=== PATIENT | male | born 1975 | race Caucasian/White ===

== ENCOUNTER 2017-09-05 14:09 | Emergency (ER) | payer OTHER, SELFPAY ==
[2017-09-05 14:10] VITALS: BP 140/90; PULSE 68; RESP 16; TEMP 36.7; O2SAT 94; BMI 29.5
--- NOTE | 2017-09-05 14:19 | RAD_ITS ---
STUDY: X-RAY CHEST REASON FOR EXAM: Male, 42 years old. Chest pain TECHNIQUE: Single frontal view of the chest. COMPARISON: Chest CT dated September 25, 2014. FINDINGS: There is low volume inspiration with granulomatous calcification. There is no demonstrated pleural abnormality. Normal size heart. Normal mediastinum and omid. Normal visualized pulmonary arteries. Normal visualized aortic arch and descending thoracic aorta. Normal visualized thoracic spine. Normal visualized ribs, clavicles, and shoulders. There is no demonstrated abnormality of the visualized soft tissue structures of the upper abdomen. RAD/Chest 1 View (Portable) IMPRESSION: No acute pathology. Electronically Signed: Paco Sanders MD at 15:13 EST , Service support ,
--- NOTE | 2017-09-05 14:19 | EKG12_ITS ---
Test Reason : REPEAT Blood Pressure : / mmHG Vent. Rate : 064 BPM Atrial Rate : 064 BPM P-R Int : 174 ms QRS Dur : 090 ms QT Int : 404 ms P-R-T Axes : 047 017 023 degrees QTc Int : 416 ms Normal sinus rhythm Normal ECG Confirmed by RHODA PETIT MD ([id number]), editor book CLARIBEL RAMIREZ ([id number]) on 09/07/2017 12:50:17 PM Referred By: TATA Confirmed By:RHODA PETIT MD
[2017-09-05 14:23] VITALS: O2SAT 99
[2017-09-05 14:27] LABS: Absolute Lymphocyte Count 0.99 X10^3/ul (0.83-4.51); Absolute Neutrophil Count 1.5 X10^3/uL (2.0-7.7); Basophil# 0.07 X10^3/uL; Basophil% 2.3 % (0-1); Eosinophil# 0.09 X10^3/uL; Hematocrit 45.4 % (40-54); Hemoglobin 16.5 g/dl (13.0-16.5); Lymphocyte # 0.99 X10^3/ul (4.0); Lymphocyte % 32.6 % (19-41); Mean Corp Hgb Conc 36.3 g/gl (32-36); Mean Corpuscular Hgb 32.4 pg (27.0-32.0); Mean Platelet Vol. 9.7 fl (6.2-12.0); Monocyte# 0.36 X10^3/uL; Monocyte% 11.8 % (0-10); Neutrophil # 1.52 X10^3/uL (2.7-7.7); POSITIVE COUNT NO; POSITIVE DIFFERENTIAL NO; POSITIVE MORPHOLOGY NO; Platelet Count 187 K/mm3 (150-450); RBC Distribution Width CV 12.6 % (11.6-14.6); RBC Distribution Width SD 40.9 fl (35.1-43.9)
[2017-09-05 14:44] LABS: Anion Gap 5 (5-15); BUN 11 mg/dL (7-18); BUN/Creat Ratio 11.6 RATIO (10-20); Calcium,Total 8.7 mg/dL (8.5-10.1); Chloride 104 mmol/L (98-107); Creatinine, Serum 0.95 mg/dL (0.70-1.30); EST Glomerular Filtration Rate 92 mL/min (>60); Est Glom Filt Rate - Afr Amer 111 mL/min (>60); Estimated Creatinine Clearance 106.79 ml/min; Glucose 113 mg/dL (74-106); Potassium 4.6 mmol/L (3.5-5.1); Sodium Level 138 mmol/L (136-145)
--- NOTE | 2017-09-05 14:53 | ED.DCSUM_ITS ---
- ER Visit Summary Date of Service: 09/05/17 Chief Complaint: Chest pain History of Present Illness: The patient is a 42 M who presents to the emergency department by squad with chest pain. The patient was in his normal state of health. He states over the past 4-5 days, he has had some intermittent abdominal cramping and mild nausea. He felt like he was getting a GI bug. He states he went to work today and felt fine. When he came home, he was slicing some bread. He had a sudden onset stabbing tightness in his central chest. He felt like it radiated to his neck. It lasted about 30 seconds and significantly decreased, but did not go away. He states that he began to feel lightheaded like he was going to pass out. He states he never had pain like this before. He denies any history of coronary vascular disease. 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 He also has a history of papillary thyroid cancer and is status post partial thyroidectomy. He denies history of smoking. He denies exertional dyspnea. He has no history of pulmonary embolus. Physical Examination: Vital signs reviewed General: Well-nourished, well-developed Head: Normocephalic, atraumatic Eyes: Pupils equal and reactive, extraocular muscles intact Neck, supple, no lymphadenopathy Heart: Regular rate and rhythm Respiratory: No distress, clear bilaterally Abdomen: Soft, nontender, nondistended, no peritoneal signs Back: Nontender Extremities: Nontender, no edema, no cords Skin: Normal color no rash Neuro: Alert and oriented, no focal or lateralizing deficits Test Results: EKG shows sinus rhythm without acute ischemia. Cardiac enzymes are unremarkable. Chest x-ray unremarkable. Emergency Department Course and Treatment: The patient presents with left-sided chest pain that began suddenly. It only lasted about 30 seconds. He has a mild ache now, but states it is not nearly as severe as it was before. His EKG is normal. There is no evidence of acute ischemic change. He is a normal axis and normal intervals. Chest x-ray is also unremarkable. The patient has negative cardiac enzymes. I did treat him with a GI cocktail with really no change. The patient has a heart score of 1. I did discuss options with him. He is comfortable with plan for a delta troponin. As long as this is negative, I do for the patient can safely be discharged home with outpatient follow-up. Family is agreeable with this plan of care. If there is any change in plan, addendum will be added. Treatment Plan: [] Disposition: Pending Impression: 1. Chest pain This note was generated with [employer] dictation software. It may contain incorrect words, spelling, and punctuation that were not noted in review of the chart prior to signing ED Disposition - Plan for ED Patient: Chief Complaint: Chest Pain Instructions: ED Chest Pain NonCardiac Referrals: Lorena Crump DO [Primary Care Provider] - 2 Days
--- NOTE | 2017-09-05 15:12 | EKG12_ITS ---
Test Reason : CHEST PAIN Blood Pressure : / mmHG Vent. Rate : 068 BPM Atrial Rate : 068 BPM P-R Int : 176 ms QRS Dur : 086 ms QT Int : 386 ms P-R-T Axes : 055 005 024 degrees QTc Int : 410 ms Normal sinus rhythm Normal ECG Confirmed by MARISABEL WATT, RHODA ([id number]), commissioning editor CLARIBEL RAMIREZ ([id number]) on 09/07/2017 12:54:54 PM Referred By: Confirmed By:RHODA PETIT MD
--- NOTE | 2017-09-05 15:23 | ED.RN ---
2nd ekg to go with 2nd troponin.
[2017-09-05 16:36] VITALS: BP 126/87; PULSE 69; RESP 16; O2SAT 99
[2017-09-05 17:46] VITALS: BP 134/97; PULSE 79; RESP 16; O2SAT 100
== END 2017-09-05 17:46 | disposition home or self-care (01) ==
LOC: ED 14:52
PROVIDERS: Emergency Provider Emergency Medicine; Family Provider Family Medicine; PCP Family Medicine
DX: R07.89 Other chest pain (principal); R10.9 Unspecified abdominal pain; R11.0 Nausea; R42 Dizziness and giddiness; Z85.47 Personal history of malignant neoplasm of testis; Z90.79 Acquired absence of other genital organ(s); Z85.850 Personal history of malignant neoplasm of thyroid; Z90.89 Acquired absence of other organs; Z79.899 Other long term (current) drug therapy
CPT/HCPCS: 71045; 80048; 84484; 85025; 93005; 99285; A4216

== ENCOUNTER → 2017-09-14 14:32 | Outpatient (CLI) | payer OTHER, SELFPAY ==
[2017-09-14 15:59] LABS: Cholesterol 197 mg/dL (200); High Density Lipoprotein 54 mg/dL; T4 Free Direct 0.88 ng/dL (0.76-1.46); Thyroid Stim Hormone (TSH) 3.54 uIU/mL (0.358-3.74); Triglycerides 67 mg/dL; Very Low Density Lipoprotein 13 mg/dL (5-40)
[2017-09-15 10:36] LABS: T3 Total - Triiodothyronine 1.11 ng/mL (0.6-1.81)
== END ==
PROVIDERS: Visit Provider Family Medicine
DX: E03.9 Hypothyroidism, unspecified (principal); Z13.220 Encounter for screening for lipoid disorders
CPT/HCPCS: 36415; 80061; 84439; 84443; 84480

== ENCOUNTER 2017-10-13 06:35 | Day surgery (SDC) | payer OTHER, SELFPAY ==
[2017-10-13] VITALS (7 sets, daily range): BP systolic 121–137; BP diastolic 82–95; PULSE 65–75; RESP 14–16; TEMP 35.9–36.4; O2SAT 93–96; BMI 27.1
--- NOTE | 2017-10-13 08:08 | PCM.OPRPT ---
Problem List (1) Gastro-esophageal reflux disease without esophagitis Status: Acute Report of Operation Date of Procedure: 10/13/17 Pre-Operative Diagnosis: k21.9 gastroesophageal reflux disease with out esophagitis Post-Operative Diagnosis: Same Surgery/Procedure Performed:: [id number] esophagogastroduodenoscopy with biopsy Type of Anesthesia:: MAC Anesthesiologist: Jadon Tellez Description of Procedure: Patient was brought into the endoscopy suite back of his throat was sprayed with Cetacaine spray. A bite-block was placed. He was placed on the left lateral decubitus position. He was given graded anesthesia. The scope was inserted into the oropharynx and directed down through the esophagus, stomach, and into the duodenum without difficulty. Operative findings: 1. Duodenum: Normal appearance no mass lesions no erythema and no ulcers identified. The scope easily traversed through the pylorus into the duodenal bulb which also looked entirely normal. 2. Stomach: Several areas look like it had been bleeding in the past but no obvious direct ulcers were identified. He did have some gastritis particularly in the prepyloric area. Biopsy for H. pylori was obtained. Retroflexion did not show any signs of a hiatal hernia. 3. Esophagus: Normal appearance no mass lesions no signs of esophagitis no mass lesions. The scope was withdrawn and the patient tolerated the procedure well. At this point I think it would be best if we started him on an [id number] proton pump inhibitor for at least a month to see if this will control any symptoms he may be having. - Admit VTE Documentation VTE Present on Admission: No VTE Mechan Device Prophylaxis: None VTE Pharm Prophylaxis ordered?: No Reason prophylaxis not ordered:: Treatment Not Indicated
--- NOTE | 2017-10-13 08:12 | OP.PCM_ITS ---
Problem List (1) Gastro-esophageal reflux disease without esophagitis Status: Acute Report of Operation Date of Procedure: 10/13/17 Pre-Operative Diagnosis: k21.9 gastroesophageal reflux disease with out esophagitis Post-Operative Diagnosis: Same Surgery/Procedure Performed:: [id number] esophagogastroduodenoscopy with biopsy Type of Anesthesia:: MAC Anesthesiologist: Jadon Tellez Description of Procedure: Patient was brought into the endoscopy suite back of his throat was sprayed with Cetacaine spray. A bite-block was placed. He was placed on the left lateral decubitus position. He was given graded anesthesia. The scope was inserted into the oropharynx and directed down through the esophagus, stomach, and into the duodenum without difficulty. Operative findings: 1. Duodenum: Normal appearance no mass lesions no erythema and no ulcers identified. The scope easily traversed through the pylorus into the duodenal bulb which also looked entirely normal. 2. Stomach: Several areas look like it had been bleeding in the past but no obvious direct ulcers were identified. He did have some gastritis particularly in the prepyloric area. Biopsy for H. pylori was obtained. Retroflexion did not show any signs of a hiatal hernia. 3. Esophagus: Normal appearance no mass lesions no signs of esophagitis no mass lesions. The scope was withdrawn and the patient tolerated the procedure well. At this point I think it would be best if we started him on an jxkr-dcs-eifarld proton pump inhibitor for at least a month to see if this will control any symptoms he may be having. - Admit VTE Documentation VTE Present on Admission: No VTE Mechan Device Prophylaxis: None VTE Pharm Prophylaxis ordered?: No Reason prophylaxis not ordered:: Treatment Not Indicated
== END 2017-10-13 08:53 | disposition home or self-care (01) ==
LOC: EN 06:36 → AC 06:37
PROVIDERS: Family Provider Family Medicine; PCP Family Medicine; Visit Provider Surgery
PROC: 0DJ08ZZ Inspection of Upper Intestinal Tract, Via Natural or Artificial Opening Endoscopic (ICD-10-PCS; CPT 43235; principal; 2017-10-13 07:55)
DX: K21.9 Gastro-esophageal reflux disease without esophagitis (principal); F32.9 Major depressive disorder, single episode, unspecified; F41.9 Anxiety disorder, unspecified; Z85.850 Personal history of malignant neoplasm of thyroid; Z85.47 Personal history of malignant neoplasm of testis; Z79.899 Other long term (current) drug therapy
CPT/HCPCS: 43239; J7120

== ENCOUNTER → 2017-11-29 15:04 | Outpatient (CLI) | payer OTHER, SELFPAY ==
[2017-11-29 16:19] LABS: LDH 215 U/L (87-241)
[2017-12-01 11:29] LABS: AFP, Tumor Marker 2.4 ng/mL (0.0-8.3)
[2017-12-01 11:33] LABS: HCG BETA-SUBUNIT QUANT. < 1 mIU/mL (0-3)
== END ==
PROVIDERS: Family Provider Family Medicine; PCP Family Medicine; Visit Provider Nurse Practitioner Adult Health
DX: Z85.47 Personal history of malignant neoplasm of testis (principal)
CPT/HCPCS: 36415; 82105; 83615; 84702

== ENCOUNTER → 2017-12-06 16:05 | Outpatient (CLI) | payer OTHER, SELFPAY ==
--- NOTE | 2017-12-06 16:09 | US_ITS ---
STUDY: SCROTUM ULTRASOUND REASON FOR EXAM: Male, 42 years old. Left testicular pain. Previous right orchiectomy. TECHNIQUE: Ultrasound evaluation of the scrotum was performed with color Doppler and static garcia-scale imaging. COMPARISON: None. FINDINGS: RIGHT TESTICLE Absent. LEFT TESTICLE INTRATESTICULAR: There is a normal size of the left testicle. The left testicle measures 4.8 x 3.4 x 2.1 cm. There is a homogenous echotexture. There is normal arterial and normal venous vascularity. There is no demonstrated left testicular mass or cyst. EXTRATESTICULAR: The epididymis is normal in size. The epididymis head measures 1.0 cm. There is normal vascularity of the epididymis. There is no demonstrated epididymal cystic structure. There is a small to moderate size hydrocele. There is no demonstrated varicocele. There is no demonstrated extratesticular mass or cyst. US/Testicular with Arterial Flow IMPRESSION: No significant abnormality, status post right orchiectomy. Electronically Signed: Stewart Lr MD at 19:21 EDT , Service support ,
== END ==
PROVIDERS: Family Provider Family Medicine; PCP Family Medicine; Visit Provider Nurse Practitioner Adult Health
DX: N50.812 Left testicular pain (principal); Z85.47 Personal history of malignant neoplasm of testis
CPT/HCPCS: 76870; 93976

== ENCOUNTER → 2018-10-14 14:26 | Outpatient (CLI) | payer OTHER, SELFPAY ==
[2018-10-14 16:11] LABS: Hematocrit 46.8 % (40-54); Mean Corp Hgb Conc 34.2 g/gl (32-36); Mean Corpuscular Hgb 31.9 pg (27.0-32.0); Mean Corpuscular Volume 93.4 fL (80-94); Mean Platelet Vol. 9.9 fl (6.2-12.0); Platelet Count 207 K/mm3 (150-450); RBC Distribution Width CV 12.7 % (11.6-14.6); RBC Distribution Width SD 42.7 fl (35.1-43.9); Red Blood Count 5.01 M/mm3 (4.6-6.2); Scan Indicated on CBC? Y/N NO; White Blood Count 3.5 K/mm3 (4.4-11.0)
[2018-10-14 16:28] LABS: ALB/GLOB Ratio 1.3 RATIO (0.9-2.4); AST(SGOT) 27 U/L (15-37); Alanine Aminotransfer ALT/SGPT 41 U/L (16-61); Albumin, Serum 4.3 g/dL (3.2-5.0); Alkaline Phosphatase 72 U/L (45-117); Anion Gap 7 (5-15); BUN 11 mg/dL (7-18); BUN/Creat Ratio 10.8 RATIO (10-20); Calcium,Total 8.8 mg/dL (8.5-10.1); Chloride 105 mmol/L (98-107); Cholesterol 191 mg/dL (200); Creatinine, Serum 1.02 mg/dL (0.70-1.30); EST Glomerular Filtration Rate 84 mL/min (>60); Est Glom Filt Rate - Afr Amer 102 mL/min (>60); Globulin 3.4 g/dL (2.2-4.2); Glucose 93 mg/dL (74-106); High Density Lipoprotein 50 mg/dL; PSA,Total - Annual Screen 1.09 ng/mL (0.00-4.00); Potassium 4.5 mmol/L (3.5-5.1); Protein, Total 7.7 g/dL (6.4-8.2); Sodium Level 142 mmol/L (136-145); T4 Free Direct 0.89 ng/dL (0.76-1.46); Thyroid Stim Hormone (TSH) 1.98 uIU/mL (0.358-3.74); Triglycerides 80 mg/dL; Very Low Density Lipoprotein 16 mg/dL (5-40)
[2018-10-19 09:08] LABS: Testosterone, Free 7.68 ng/dL (5.00-21.00)
[2018-10-19 11:39] LABS: Testosterone, % Free 2.34 % (1.50-4.20); Testosterone, Total 328 ng/dL (264-916)
== END ==
PROVIDERS: Family Provider Family Medicine; PCP Family Medicine; Visit Provider Family Medicine
DX: E03.9 Hypothyroidism, unspecified (principal); C62.90 Malignant neoplasm of unspecified testis, unspecified whether descended or undescended; E34.9 Endocrine disorder, unspecified; R53.83 Other fatigue; E78.5 Hyperlipidemia, unspecified; Z12.5 Encounter for screening for malignant neoplasm of prostate; Z51.81 Encounter for therapeutic drug level monitoring
CPT/HCPCS: 36415; 80053; 80061; 84153; 84402; 84403; 84439; 84443; 84481; 85027; G0103

== ENCOUNTER → 2019-03-14 | Outpatient (CLI) | payer OTHER, SELFPAY ==
--- NOTE | 2019-03-14 16:31 | CT_ITS ---
HISTORY:Abdominal wall mass/tenderness above umbilicus x 3-4 weeks. Hx testicular cancer, thyroid cancer with surgery and radiation. TECHNIQUE: CT Abdomen W/ Contrast Axial CT images were obtained of the abdomen and pelvis following IV/Oral 100mL Isovue 300 IV contrast. oral contrast was administered. Multiplanar reconstructions were also provided. A radiation dose optimization technique was used for this scan. # of images including paperwork:378 COMPARISON: None FINDINGS: FINDINGS: # of images incl. paperwork: 378 LOWER CHEST: Dependent atelectasis in the lung bases LIVER: Homogeneous. No focal mass. GALLBLADDER AND BILIARY TREE: No calcified gallstones. There is no gallbladder distension or wall edema. No intra- or extrahepatic biliary ductal dilation. KIDNEYS AND URETERS: There is a tiny low-density lesion seen within the inferior pole of the left kidney that is too small to quantify measuring 2.5 mm most likely representing a cyst. This was present on the prior study and is similar ADRENAL GLANDS: Non-enlarged. SPLEEN: Normal size without focal cystic or solid mass. PANCREAS: No focal cystic or solid mass. BOWEL: The stomach contains contrast and is unremarkable Visualized portions of the small bowel also contain contrast and unremarkable. No diverticulitis or mechanical obstruction involving the visualized portion of the colon. There is retained fecal material seen predominantly in the ascending colon APPENDIX:Not visualized but no pericecal inflammation FREE AIR: Unremarkable. FREE FLUID:Unremarkable AORTA: Unremarkable. OSSEOUS STRUCTURES: Unremarkable. LYMPH NODES: Unremarkable. CT/Abdomen WITH IV Contrast IMPRESSION: Dependent atelectasis in the lung bases Suspect tiny cyst at the inferior pole left kidney unchanged prior study No gross abnormalities are seen within the region of the umbilicus or proximal to the umbilicus. Individualized dose optimization techniques were used for this CT. at 2217 Reported and signed by: Aury Farmer DO Electronically Signed: Aury Farmer DO at 22:15 EDT Tel , Service support ,
[2019-03-14 16:41] LABS: CREATININE FINGERSTICK 1.1 mg/dL (0.70-1.30); EGFR FINGERSTICK > 60.0000 mL/min (>60)
== END | disposition home or self-care (01) ==
PROVIDERS: Family Provider Family Medicine; PCP Family Medicine; Referring Provider Family Medicine; Visit Provider Family Medicine
DX: R19.06 Epigastric swelling, mass or lump (principal)
CPT/HCPCS: 74160; Q9967

== ENCOUNTER → 2020-08-21 13:20 | Outpatient (CLI) | payer OTHER, SELFPAY ==
[2019-04-12 14:20] VITALS: BMI 27.1
[2020-08-21 15:48] LABS: Absolute Lymphocyte Count 0.99 X10^3/uL (0.83-4.51); Basophil# 0.04 X10^3/uL; Basophil% 0.7 % (0-1); Eosinophil# 0.06 X10^3/uL; Eosinophils% 1.1 % (0-5); Hematocrit 47.3 % (40-54); Hemoglobin 16.8 g/dL (13.0-16.5); Lymphocyte # 0.99 X10^3/ul (4.0); Lymphocyte % 17.7 % (19-41); Mean Corp Hgb Conc 35.5 g/dL (32-36); Mean Corpuscular Hgb 32.6 pg (27.0-32.0); Mean Corpuscular Volume 91.7 fL (80-94); Mean Platelet Vol. 10.4 fl (6.2-12.0); Monocyte# 0.46 X10^3/uL; Monocyte% 8.2 % (0-10); NRBC Flagged by Analyzer 0 % (0-5); Neutrophil # 4.02 X10^3/uL (2.7-7.7); Neutrophil % 72.1 % (47-70); Platelet Count 216 K/mm3 (150-450); RBC Distribution Width CV 12.4 % (11.6-14.6); RBC Distribution Width SD 41.6 fl (35.1-43.9); Red Blood Count 5.16 M/mm3 (4.6-6.2); White Blood Count 5.6 K/mm3 (4.4-11.0)
[2020-08-21 16:04] LABS: Erythrocyte Sedimentation Rate 2 mm/hr (0-20)
[2020-08-21 16:26] LABS: ALB/GLOB Ratio 1.3 RATIO (0.9-2.4); AST(SGOT) 26 U/L (15-37); Alanine Aminotransfer ALT/SGPT 34 U/L (16-61); Albumin, Serum 4.4 g/dL (3.2-5.0); Alkaline Phosphatase 62 U/L (45-117); Anion Gap 8 (5-15); BUN 14 mg/dL (7-18); BUN/Creat Ratio 11.6 RATIO (10-20); CRP < 2.90 mg/L (0.0-3.0); Calcium,Total 8.9 mg/dL (8.5-10.1); Chloride 103 mmol/L (98-107); Creatinine, Serum 1.21 mg/dL (0.70-1.30); EST Glomerular Filtration Rate 69 mL/min (>60); Est Glom Filt Rate - Afr Amer 83 mL/min (>60); Free T3 2.7 pg/mL (2.18-3.98); Globulin 3.3 g/dL (2.2-4.2); Glucose 85 mg/dL (74-106); LDH 255 U/L (87-241); Potassium 3.5 mmol/L (3.5-5.1); Protein, Total 7.7 g/dL (6.4-8.2); Sodium Level 137 mmol/L (136-145); T4 Free Direct 1.05 ng/dL (0.76-1.46); Thyroid Stim Hormone (TSH) 4.79 uIU/mL (0.358-3.74)
== END ==
PROVIDERS: PCP Family Medicine; Visit Provider Family Medicine
DX: E03.9 Hypothyroidism, unspecified (principal); Z85.850 Personal history of malignant neoplasm of thyroid; C62.90 Malignant neoplasm of unspecified testis, unspecified whether descended or undescended; Z51.81 Encounter for therapeutic drug level monitoring; R10.9 Unspecified abdominal pain
CPT/HCPCS: 36415; 80053; 83615; 84439; 84443; 84481; 85025; 85652; 86140

== ENCOUNTER → 2020-09-11 10:43 | Outpatient (CLI) | payer OTHER, SELFPAY ==
[2019-04-12 14:20] VITALS: BMI 27.1
--- NOTE | 2020-09-11 10:47 | US_ITS ---
STUDY: ABDOMINAL ULTRASOUND REASON FOR EXAM: Male, 45 years old. Abdominal pain TECHNIQUE: Transabdominal ultrasound was performed with real-time and static garcia scale imaging. TECHNICAL QUALITY: Adequate. COMPARISON: None. FINDINGS: Liver: The liver measures 15.4 cm. There is normal echogenicity of the liver. The bile ducts are within normal limits. There is hepatic color flow. The direction of portal flow is hepatopetal. There is no demonstrated mass lesion. Portal vein measurement: Gallbladder: Normal distended gallbladder. The gallbladder wall measures 3.0 mm. There is a negative sonographic Estrada''s sign. There is no pericholecystic fluid. There are no gallstones. Common Bile Duct (C.B.D.): The common bile duct measures 3.0 mm. Pancreas: There is nonvisualization of the pancreas due to overlying bowel gas. There is normal echogenicity of the pancreas. There is no demonstrated pancreatic mass or cyst. Spleen: Normal size of the spleen. The spleen measures 11.7 cm x 4.6 cm x 4.5 cm. Right Kidney: Normal size of the right kidney. The right kidney measures 11.2 cm x 5 cm x 5.8 cm. Normal renal cortex. The right cortex measures 1.7 cm. There is no demonstrated renal mass or cyst. There is no right hydronephrosis. Left Kidney: Normal size of the left kidney. The left kidney measures 12.4 cm x 5.8 cm x 6.7 cm. Normal renal cortex. The left cortex measures 2.1 cm. There is no demonstrated renal mass or cyst. There is no left hydronephrosis. Aorta: Unremarkable I.V.C.: The IVC is patent. There is no ascites. US/Abdomen Complete IMPRESSION: Normal abdominal ultrasound examination. Electronically Signed: Mik Uriostegui MD at 12:42 EST , Service support ,
== END ==
PROVIDERS: PCP Family Medicine; Referring Provider Family Medicine; Visit Provider Family Medicine
DX: R10.9 Unspecified abdominal pain (principal); R74.8 Abnormal levels of other serum enzymes
CPT/HCPCS: 76700

== ENCOUNTER 2021-08-26 15:34 | Outpatient (CLI) | payer OTHER, SELFPAY ==
[2021-08-26 16:40] LABS: Free T3 3.5 pg/mL (2.18-3.98); Thyroid Stim Hormone (TSH) 0.06 uIU/mL (0.358-3.74)
== END 2021-08-26 23:59 | disposition short-term general hospital (02) ==
LOC: LABSPEC 15:35
PROVIDERS: PCP Family Medicine; Visit Provider Family Medicine
DX: E03.9 Hypothyroidism, unspecified (principal)
CPT/HCPCS: 84439; 84443; 84481

== ENCOUNTER 2021-11-02 20:45 | Emergency (ER) | payer OTHER, SELFPAY ==
[2021-11-02 20:46] VITALS: BP 181/105; PULSE 78; RESP 16; TEMP 36.7; O2SAT 99; BMI 26.4
[2021-11-02 21:14] VITALS: BP 149/102; PULSE 77; RESP 14; O2SAT 94
--- NOTE | 2021-11-02 21:25 | EKG12_ITS ---
Test Reason : DYSRYTHMIA Blood Pressure : / mmHG Vent. Rate : 065 BPM Atrial Rate : 065 BPM P-R Int : 194 ms QRS Dur : 094 ms QT Int : 392 ms P-R-T Axes : 054 015 043 degrees QTc Int : 407 ms Normal sinus rhythm Normal ECG Confirmed by RACHELL WATT, SHARON ([id number]), purchase request editor ABA BARR ([id number]) on 11/05/2021 11:27:49 AM Referred By: BRINDA Confirmed By:SHARON LOVETT MD
[2021-11-02] MEDS: 0.9% Normal Saline 1,000 ML 1000 ML IV (21:29)
[2021-11-02 21:44] LABS: Absolute Lymphocyte Count 1.39 X10^3/uL (0.83-4.51); Absolute Neutrophil Count 3.4 X10^3/uL (2.0-7.7); Basophil# 0.05 X10^3/uL; Basophil% 0.9 % (0-1); Eosinophil# 0.12 X10^3/uL; Eosinophils% 2.2 % (0-5); Hematocrit 47.4 % (40-54); Lymphocyte # 1.39 X10^3/ul (0.83-4.51); Lymphocyte % 24.9 % (19-41); Mean Corp Hgb Conc 35.9 g/dL (32-36); Mean Corpuscular Hgb 31.9 pg (27.0-32.0); Mean Corpuscular Volume 88.9 fL (80-94); Monocyte# 0.64 X10^3/uL; Monocyte% 11.5 % (0-10); NRBC Flagged by Analyzer 0 % (0-5); Neutrophil # 3.37 X10^3/uL (2.7-7.7); Neutrophil % 60.3 % (47-70); Platelet Count 214 K/mm3 (150-450); RBC Distribution Width CV 12.4 % (11.6-14.6); RBC Distribution Width SD 40.3 fl (35.1-43.9); Red Blood Count 5.33 M/mm3 (4.6-6.2); White Blood Count 5.6 K/mm3 (4.4-11.0)
[2021-11-02 22:02] LABS: Anion Gap 4 (5-15); BUN 14 mg/dL (7-18); BUN/Creat Ratio 10.1 RATIO (10-20); Calcium,Total 9.1 mg/dL (8.5-10.1); Chloride 109 mmol/L (98-107); Creatinine, Serum 1.38 mg/dL (0.70-1.30); EST Glomerular Filtration Rate 59 mL/min (>60); Est Glom Filt Rate - Afr Amer 71 mL/min (>60); Estimated Creatinine Clearance 70.48 ml/min; Glucose 133 mg/dL (74-106); Potassium 3.5 mmol/L (3.5-5.1); Sodium Level 139 mmol/L (136-145); Troponin-I HS < 3 pg/mL (3.0-78.0)
--- NOTE | 2021-11-02 22:03 | EDS_ITS ---
HPI History of Present Illness Chief Complaint: Other, Pain/Inj Informant: patient Narrative Narrative: 46-year-old male presenting with bilateral bicep arm pain. He states he had these symptoms approximately 1 hour ago. He states the symptoms lasted approximately 45 seconds to 1 minute. He states over the past couple of days he has also had episodes of feeling lightheaded. He has not passed out. He denies chest pain or shortness of breath. Denies fever. Denies numbness or weakness. Denies other complaints. Denies CAD risk factors. Denies PE/DVT risk factors. Prior similar symptoms: No Recent Illness/Hospitalization: No [facility] Medical History (Updated 11/02/21 @ 22:[address] Karma Ellison MD) Depression GERD (gastroesophageal reflux disease) Testicular cancer Thyroid cancer Home Medications levothyroxine 100 mcg tablet 100 mcg PO DAILY tab 04/12/19 [History Last Taken Unknown] levothyroxine 25 mcg capsule 25 mcg PO DAILY 04/12/19 [History Last Taken Unknown] omeprazole 40 mg capsule,delayed release 40 mg PO DAILY 04/12/19 [History Last Taken Unknown] Allergy/AdvReac Type Severity Reaction Status Date / Time No Known Allergies Allergy Verified 04/12/19 14:18 Family History Mother Cancer melanoma Hypertension Surgical History History of esophagogastroduodenoscopy (EGD) (~10/13/17) History of surgical removal of testicle S/P total thyroidectomy Social History (Updated 04/12/19 @ 14:[address] Jese Patel MD) Smoking Status: Never smoker alcohol intake: current substance use type: does not use ROS ROS ED Constitutional Constitutional ED: Denies fever(s) Eyes Eyes: Denies change in vision ENT ENT ED: Denies rhinorrhea or sore throat Cardiovascular Cardiovascular: Denies chest pain or palpitations Respiratory/Chest Respiratory/Chest: Denies cough or dyspnea Gastrointestinal Gastrointestinal: Denies abdominal pain, diarrhea, nausea or vomiting Genitourinary Genitourinary ED: Denies dysuria Musculoskeletal Musculoskeletal: Denies back pain or neck pain Integumentary Denies rash Neurologic Neurologic: Denies headache(s), paresthesias or weakness Psychiatric Psychiatric: Denies suicidal thoughts EXAM Physical Exam Const Vital Signs: 11/02/21 20:46 11/02/21 20:54 11/02/21 21:14 Temperature 98.1 F Temperature Source Temporal Pulse Rate 78 77 Respiratory Rate 16 14 Respiratory Effort Normal Respiratory Pattern Normal Blood Pressure 181/105 H 149/102 H Blood Pressure Mean 130 117 Pulse Ox 99 94 Oxygen Delivery Method Room Air Room Air Positive well nourished and well developed General Appearance ED: well developed HEENT Reports normocephalic and head/scalp atraumatic Eyes PERRL and EOMs intact bilaterally Neck supple General: Negative for tenderness Chest Wall inspection of chest normal Resp normal respiratory effort and clear to auscultation bilaterally Cardio regular rate and regular rhythm GI non-tender and non-distended Palpation: soft; Negative for guarding or rebound tenderness present no CVA tenderness Extremity normal to inspection Neuro oriented x3, CN's II-XII intact bilaterally and no sensory deficits noted Sensorium / Orientation: alert Motor Exam: strength 5/5 throughout Psych mental status grossly normal Skin no rashes or lesions noted MDM MDM MDM Narrative Medical decision making narrative: CBC, chemistries are unremarkable. Creatinine 1.38, previous 1.21. Troponin is negative. Patient was given IV fluids. Patient is resting comfortably on reevaluation. He continues to deny chest pain. Delta troponin will be obtained and is pending at this time. Patient will be discharged to follow-up with his primary care physician if this is negative. He was advised signs and symptoms for which to return to the ED. He is agreeable with this plan. Lab Data Attestation: I reviewed the patient's lab results. Labs: Laboratory Results - last 24 hr 11/02/21 11/02/21 21:25 21:25 WBC 5.6 RBC 5.33 Hgb 17.0 H Hct 47.4 MCV 88.9 MCH 31.9 MCHC 35.9 RDW Std Deviation 40.3 RDW Coeff of Paula 12.4 Plt Count 214 MPV 10.0 Immature Gran % (Auto) 0.200 Neut % (Auto) 60.3 Lymph % (Auto) 24.9 [place] % (Auto) 11.5 H Eos % (Auto) 2.2 Baso % (Auto) 0.9 Absolute Neuts (auto) 3.4 Absolute Lymphs (auto) 1.39 Nucleated RBC % 0 Sodium 139 Potassium 3.5 Chloride 109 H Carbon Dioxide 26.0 Anion Gap 4 L BUN 14 Creatinine 1.38 H Estim Creat Clear Calc 70.48 Est GFR (MDRD) Af Amer 71 Est GFR (MDRD) Non-Af 59 L BUN/Creatinine Ratio 10.1 Glucose 133 H Calcium 9.1 Troponin I High Sens < 3 L EKG Initial EKG: Attestation: I personally reviewed and interpreted this EKG as follows: Interpretation: Sinus Rhythm and No Acute Injury Pattern Discharge Plan Triage Chief Complaint: Other, Pain/Inj ED Provider: Karma Ellison Dx/Rx/DC Orders Clinical Impression: Bilateral arm pain Instructions: ED Muscle Spasm Prescriptions: No Action levothyroxine 100 mcg tablet 100 mcg PO DAILY RF: 0 omeprazole 40 mg capsule,delayed release(DR/EC) 40 mg PO DAILY RF: 0 levothyroxine 25 mcg capsule 25 mcg capsule 25 mcg PO DAILY RF: 0 Primary Care Provider: Lorena Crump Referrals: Lorena Crump DO [Primary Care Provider] -
--- NOTE | 2021-11-02 22:15 | RAD_ITS ---
STUDY: X-RAY CHEST REASON FOR EXAM: Male, 46 years old. sob TECHNIQUE: AP portable. 10:06 PM. COMPARISON: 09/05/2017. FINDINGS: LUNGS: No consolidation. No pneumothorax. MEDIASTINUM: Unremarkable. CARDIAC SILHOUETTE: Not enlarged. BONES AND SOFT TISSUES: No acute abnormalities. RAD/Chest 1 View (Portable) IMPRESSION: Negative portable chest x-ray. Electronically Signed: Mariana Alexander MD at 23:05 EDT ,
[2021-11-02 23:53] LABS: Troponin-I HS < 3 pg/mL (3.0-78.0)
[2021-11-03 00:05] VITALS: BP 135/74; PULSE 84; RESP 17; O2SAT 98
== END 2021-11-03 00:06 | disposition home or self-care (01) ==
PROVIDERS: Emergency Provider Emergency Medicine; PCP Family Medicine; Visit Provider Emergency Medicine
DX: M79.602 Pain in left arm (principal); M79.601 Pain in right arm; Z85.850 Personal history of malignant neoplasm of thyroid; Z85.47 Personal history of malignant neoplasm of testis; K21.9 Gastro-esophageal reflux disease without esophagitis
CPT/HCPCS: 71045; 80048; 84484; 85025; 93005; 96360; 99281; 99282; J7030; A4216

== ENCOUNTER → 2021-11-24 | Outpatient (CLI) | payer OTHER, SELFPAY ==
--- NOTE | 2021-11-24 15:41 | MRI_ITS ---
EXAM: MR HEAD WITHOUT AND WITH INTRAVENOUS CONTRAST CLINICAL INDICATION: MS, H/O TESTICULAR AND THYRIOD CA -- DIZZINESS, R EYE BLURRY, FACIAL PARATHESIS TECHNIQUE: Multiplanar and multisequence MR images of the brain were obtained without and with intravenous contrast. This report was created using [employer] report generation technology. CONTRAST: IV 18 cc dotarem COMPARISON: None. FINDINGS: BRAIN AND EXTRA-AXIAL SPACES: Mild cerebellar ectopia. No intra- or extra-axial hemorrhage. No evidence of acute infarct. No intracranial mass or mass effect. There is preservation of the garcia/white matter interface. Ventricles are appropriate for age. No hydrocephalus. Basal cisterns are patent. SELLA: Unremarkable. Normal sella turcica, pituitary gland, infundibular stalk, optic chiasm and hypothalamus. AUDITORY SYSTEM: Unremarkable. The internal auditory canals are patent. BONES/JOINTS: Unremarkable. No discrete lytic or blastic abnormalities. SINUSES: Unremarkable as visualized. Clear. MASTOID AIR CELLS: Unremarkable as visualized. Clear. ORBITS: Unremarkable as visualized. Both globes, extraocular muscles, optic nerves and retrobulbar fat appear unremarkable. VASCULATURE: Unremarkable as visualized. Normal flow voids in the major intracranial circulation. MRI/Brain W/WO Contrast IMPRESSION: No acute findings in the head/brain. Electronically Signed: Levar Tang MD at 17:29 EDT ,
== END | disposition home or self-care (01) ==
PROVIDERS: PCP Family Medicine; Visit Provider Family Medicine
DX: H53.2 Diplopia (principal); R42 Dizziness and giddiness; R20.8 Other disturbances of skin sensation
CPT/HCPCS: 70553; A9575

== ENCOUNTER → 2022-02-16 | Outpatient (CLI) | payer OTHER, SELFPAY ==
[2022-02-16 17:51] LABS: Absolute Lymphocyte Count 1.22 X10^3/uL (0.83-4.51); Absolute Neutrophil Count 3.1 X10^3/uL (2.0-7.7); Basophil# 0.04 X10^3/uL; Basophil% 0.8 % (0-1); Eosinophil# 0.08 X10^3/uL; Eosinophils% 1.6 % (0-5); Hematocrit 45.4 % (40-54); Hemoglobin 16.1 g/dL (13.0-16.5); Lymphocyte # 1.22 X10^3/ul (0.83-4.51); Lymphocyte % 24.3 % (19-41); Mean Corp Hgb Conc 35.5 g/dL (32-36); Mean Corpuscular Hgb 32.2 pg (27.0-32.0); Mean Corpuscular Volume 90.8 fL (80-94); Mean Platelet Vol. 10.5 fl (6.2-12.0); Monocyte# 0.58 X10^3/uL; Monocyte% 11.5 % (0-10); NRBC Flagged by Analyzer 0 % (0-5); Neutrophil % 61.6 % (47-70); Platelet Count 196 K/mm3 (150-450); RBC Distribution Width CV 12.1 % (11.6-14.6); RBC Distribution Width SD 40.1 fl (35.1-43.9)
[2022-02-16 18:23] LABS: Vitamin B12 263 pg/mL (211-911)
[2022-02-16 19:15] LABS: ALB/GLOB Ratio 1.4 RATIO (0.9-2.4); AST(SGOT) 22 U/L (15-37); Alanine Aminotransfer ALT/SGPT 31 U/L (16-61); Albumin, Serum 4.2 g/dL (3.2-5.0); Alkaline Phosphatase 72 U/L (45-117); Anion Gap 7 (5-15); BUN 13 mg/dL (7-18); BUN/Creat Ratio 11.1 RATIO (10-20); Calcium,Total 9.1 mg/dL (8.5-10.1); Chloride 108 mmol/L (98-107); Cholesterol 160 mg/dL (200); Creatinine, Serum 1.17 mg/dL (0.70-1.30); EST Glomerular Filtration Rate 71 mL/min (>60); Est Glom Filt Rate - Afr Amer 86 mL/min (>60); Ferritin 143 ng/mL (26-388); Glucose 104 mg/dL (74-106); High Density Lipoprotein 51 mg/dL; Iron 107 ug/dL (65-175); LDH 202 U/L (87-241); Magnesium 2.2 mg/dL (1.6-2.6); PSA,Total - Annual Screen 1.08 ng/mL (0.00-4.00); Potassium 3.4 mmol/L (3.5-5.1); Protein, Total 7.2 g/dL (6.4-8.2); Sodium Level 141 mmol/L (136-145); T4 Free Direct 0.98 ng/dL (0.76-1.46); Thyroid Stim Hormone (TSH) 0.38 uIU/mL (0.358-3.74); Triglycerides 102 mg/dL; Very Low Density Lipoprotein 20 mg/dL (5-40)
== END | disposition home or self-care (01) ==
PROVIDERS: PCP Family Medicine; Referring Provider Family Medicine; Visit Provider Family Medicine
DX: Z00.00 Encounter for general adult medical examination without abnormal findings (principal); E03.9 Hypothyroidism, unspecified; R20.8 Other disturbances of skin sensation; R42 Dizziness and giddiness; M79.601 Pain in right arm; M79.602 Pain in left arm; Z85.47 Personal history of malignant neoplasm of testis; Z12.5 Encounter for screening for malignant neoplasm of prostate
CPT/HCPCS: 36415; 80053; 80061; 82607; 82728; 83540; 83615; 83735; 84153; 84439; 84443; 84481; 85025; G0103

== ENCOUNTER → 2022-08-11 | Outpatient (CLI) | payer OTHER, SELFPAY ==
--- NOTE | 2022-08-11 | TISS_PTH ---
PATIENT: NASMI VELASCO LOC: [facility] U#:[id number] AGE/SX: 47/M ROOM: RE08/11/[address]: Dr. Lorena Crump DO : 1975 BED: DIS: 08/11/2022 SPEC #: [id number] RECD: 08/11/22 15:09 STATUS: JASON REQ #: [id number] ANNA: 08/11/22 00:[address]: TIM MCKAY DEPT: SURGICAL PATHOLOGY RECD BY: Anais Yeboah ENTERED: 08/12/22 10:05 SP TYPE: Tissue Bx OTHR DR: Dr. Lorena Crump DO Tissues: TISSUE SURGICALLY REMOVED Procedures: Special Stain Group I Surgery Specimen Level IV GMS Stain (control) Comments: @ Ordering doctor for SUIV edited from to @ by TEJINDER at 08/12/22 143 @ Submitting doctor edited from to DR.MGAYED Joy by TEJINDER at 08/12/22 1430 HEADER OPERATION: Incisional biopsy of right lower gingival tissue PRE-OP DIAGNOSIS: Right lower gingival changes TISSUE SUBMITTED: Right lower gingival tissue MICROSCOPIC DIAGNOSIS Right lower gingival tissue, incisional biopsy: A piece of squamous mucosa with extensive hyperkeratosis, acanthosis and submucosal chronic inflammation. Negative for malignancy. See comment. WILLIAMS:naheed 08/13/2022 COMMENT Special stain for fungi is negative for organisms; matched control is appropriate. Correlation with clinical findings and appropriate follow up are necessary. MICROSCOPIC DESCRIPTION Slides are reviewed. GROSS DESCRIPTION Received in fixative is one container labeled with the patient's name and designated lower right buccal tissue. The specimen consists of a single irregular fragment of bedoya tissue measuring 1.2 x 0.6 x 0.4 cm. The specimen is inked, bisected and totally submitted in one cassette. / AM:naheed 08/12/2022 TC:5 CPT: 76155, 63389
[2022-08-11 16:15] LABS: Vitamin B12 338 pg/mL (211-911)
[2022-08-11 16:31] LABS: Anion Gap 8 (5-15); BUN 13 mg/dL (7-18); BUN/Creat Ratio 10.9 RATIO (10-20); Calcium,Total 9.2 mg/dL (8.5-10.1); Chloride 104 mmol/L (98-107); Creatinine, Serum 1.19 mg/dL (0.70-1.30); EST Glomerular Filtration Rate 69 mL/min (>60); Est Glom Filt Rate - Afr Amer 84 mL/min (>60); Free T3 3.2 pg/mL (2.18-3.98); Glucose 104 mg/dL (74-106); Potassium 4.3 mmol/L (3.5-5.1); Sodium Level 140 mmol/L (136-145); T4 Free Direct 1.05 ng/dL (0.76-1.46); Thyroid Stim Hormone (TSH) 0.29 uIU/mL (0.358-3.74)
[2022-08-17 18:31] LABS: Testosterone Free 6.7 pg/mL (6.8-21.5)
== END | disposition home or self-care (01) ==
PROVIDERS: PCP Family Medicine; Referring Provider Family Medicine; Visit Provider Family Medicine
DX: E03.9 Hypothyroidism, unspecified (principal); E29.1 Testicular hypofunction
CPT/HCPCS: 36415; 80048; 82607; 84402; 84403; 84439; 84443; 84481; 88305; 88312

== ENCOUNTER → 2023-08-06 | Outpatient (CLI) | payer OTHER, SELFPAY ==
[2023-08-06 17:36] LABS: Absolute Lymphocyte Count 1.45 X10^3/uL (0.83-4.51); Basophil# 0.06 X10^3/uL; Basophil% 1.2 % (0-1); Eosinophil# 0.12 X10^3/uL; Eosinophils% 2.3 % (0-5); Hematocrit 49.4 % (40-54); Hemoglobin 16.9 g/dL (13.0-16.5); Lymphocyte # 1.45 X10^3/ul (0.83-4.51); Mean Corp Hgb Conc 34.2 g/dL (32-36); Mean Corpuscular Hgb 31.7 pg (27.0-32.0); Mean Corpuscular Volume 92.7 fL (80-94); Mean Platelet Vol. 10.4 fl (6.2-12.0); Monocyte# 0.58 X10^3/uL; Monocyte% 11.2 % (0-10); NRBC Flagged by Analyzer 0 % (0-5); Neutrophil # 2.96 X10^3/uL (2.7-7.7); Neutrophil % 57.1 % (47-70); Platelet Count 227 K/mm3 (150-450); RBC Distribution Width CV 12.5 % (11.6-14.6); RBC Distribution Width SD 42.5 fl (35.1-43.9); Red Blood Count 5.33 M/mm3 (4.6-6.2); White Blood Count 5.2 K/mm3 (4.4-11.0)
[2023-08-06 18:26] LABS: ALB/GLOB Ratio 1.3 RATIO (0.9-2.4); AST(SGOT) 26 U/L (15-37); Alanine Aminotransfer ALT/SGPT 36 U/L (16-61); Albumin, Serum 4.3 g/dL (3.2-5.0); Alkaline Phosphatase 62 U/L (45-117); Anion Gap 6 (5-15); BUN 12 mg/dL (7-18); BUN/Creat Ratio 10.6 RATIO (10-20); Calcium,Total 9.3 mg/dL (8.5-10.1); Chloride 105 mmol/L (98-107); Creatinine, Serum 1.13 mg/dL (0.70-1.30); EST Glomerular Filtration Rate 73 mL/min (>60); Est Glom Filt Rate - Afr Amer 89 mL/min (>60); Free T3 2.7 pg/mL (2.18-3.98); Globulin 3.2 g/dL (2.2-4.2); Glucose 84 mg/dL (74-106); PSA,Total - Annual Screen 1.21 ng/mL (0.00-4.00); Potassium 3.9 mmol/L (3.5-5.1); Protein, Total 7.5 g/dL (6.4-8.2); Sodium Level 139 mmol/L (136-145); T4 Free Direct 0.93 ng/dL (0.76-1.46); Thyroid Stim Hormone (TSH) 4.49 uIU/mL (0.358-3.74)
[2023-08-07 21:30] LABS: Cholesterol 179 mg/dL (200); High Density Lipoprotein 52 mg/dL; Triglycerides 77 mg/dL; Very Low Density Lipoprotein 15 mg/dL (5-40)
== END | disposition home or self-care (01) ==
LOC: MTLAB 15:35
PROVIDERS: PCP Family Medicine; Referring Provider Family Medicine; Visit Provider Family Medicine
DX: Z00.00 Encounter for general adult medical examination without abnormal findings (principal); E03.9 Hypothyroidism, unspecified; Z51.81 Encounter for therapeutic drug level monitoring; Z12.5 Encounter for screening for malignant neoplasm of prostate
CPT/HCPCS: 36415; 80053; 80061; 84153; 84439; 84443; 84481; 85025; G0103

== ENCOUNTER 2023-08-24 07:52 | Day surgery (SDC) | payer OTHER, SELFPAY ==
[2023-08-24] VITALS (7 sets, daily range): BP systolic 119–137; BP diastolic 86–90; PULSE 65–76; RESP 16–18; TEMP 36.1–36.4; O2SAT 95–98; BMI 27.3
[2023-08-24] MEDS: Lactated Ringers 1,000 ML 15 ML IV (08:08)
--- NOTE | 2023-08-24 08:29 | H&P.OPEN ---
HPI - General HPI Narrative NASIM VELASCO, is a 48 M who presents for screening colonoscopy. He has never had a colonoscopy in the past. He denies abdominal pain or blood in the stool. He has no family history of colon cancer. [facility] Medical History (Updated 08/19/23 @ 15:51 by Nikkie Viveros) Anxiety Cancer Depression Family hx colonic polyps Gastric reflux GERD (gastroesophageal reflux disease) Hypothyroidism Testicular cancer Thyroid cancer Home Medications levothyroxine 100 mcg tablet 100 mcg PO MOTUWETHFRSA 04/12/19 [History Last Taken 08/24/23] levothyroxine 25 mcg capsule 50 mcg PO PETERSON 04/12/19 [History Last Taken Unknown] omeprazole 40 mg capsule,delayed release 80 mg PO DAILY 04/12/19 [History Last Taken Unknown] Allergy/AdvReac Type Severity Reaction Status Date / Time No Known Allergies Allergy Verified 08/24/23 08:05 Family History (Updated 08/06/23 @ 10:45 by Raina Medina) Mother Cancer melanoma Hypertension Colon polyps Surgical History History of esophagogastroduodenoscopy (EGD) (~10/13/17) History of surgical removal of testicle S/P total thyroidectomy Social History (Updated 08/06/23 @ 10:46 by Raina Medina) household members: spouse current occupational status: employed Smoking Status: Never smoker Smokeless tobacco user: chewing tobacco alcohol intake: current substance use type: does not use Past Medical/Surgical History Planned Operation Planned Operative Procedure/s: COLONOSCOPY S.O.S: No Previous Hospitalizations/Surgeries HX Hospitalizations: No HX of Surgeries: RIGHT INGUINAL ORCHECTOMY 2015 TOTAL THYROIDECTOMY 2014 Any Problems With Anesthesia: No You/Your Family Experience Fever (Hyperthermia) With Anes: No Cholinesterase deficiency: No Cardiovascular Hx Chest Pain within Last 2 months: Yes (CHEST PAIN NON CARDIAC) Hx of Irregular Heartbeat and/or Afib: No Hx Heart Attack: No Hx Congestive Heart Failure: No Hx Rheumatic Fever: No Hx Hypertension: No Hx Internal Defibrillator: No Hx Pacemaker: No Hx Cardiac Catheterization: No Hx Cardiac Surgery/Stents/Etc.: No Hx Stress Test: Yes (2-3 YRS AGO AT [facility]/ECHO 2010) Hx Pain in Legs when Walking/Leg Cramps: No Respiratory Chronic Cough: No HX of Shortness of Breath: No Hoarseness: No Hx Chronic Obstructive Pulmonary Disease (COPD): No Hx Asthma: No Hx Emphysema: No Hx Sleep Apnea: No CPAP: No BIPAP: No Hx Respiratory Tract Infection/Cold (presently): No Do You Snore Loudly (louder than talking or can be heard): No Do You Often Feel Tired/ Fatigued/ Sleepy Dring Daytime?: No Has Anyone Observed You Stop Breathing During Sleep?: No Result (for STOP score): Negative Hx Smoking: No Smoking Status: Never smoker Gastrointestinal Hx Gastrointestinal Disorders: No Hx Gastrointestinal Bleed: No Hx Ulcer: No Hx Hiatal Hernia: No Difficulty Chewing/Swallowing: No Special diet followed at home: No Hx Unplanned Weight Loss of 20#: No HX Unplanned Weight Gain of 20#: No Neurological Hx Seizures: No HX Syncope/Blackout Spells/Unconsciousness: No Hx Transient Ischemic Attacks (TIA): No Hx Multiple Sclerosis: No Hx Parkinson's Disease: No Hx Head/Neck Injury: No Hx Headaches: No Hx Back Injury/Pain: No Recent Onset of Speech Difficulty: No Restless Legs: No Does patient have nerve stimulator: No Blood Disorder Hx Leukemia: No Bleeding Tendencies: No Hx Deep Vein Thrombosis: No Hx High Cholesterol: No Blood Transmitted Disease: No Hx Hepatitis: No Hx Cirrhosis: No Hx Anemia: No Hx Blood Disorders: No Genitourinary Hx Renal Disease: No Musculoskeletal Hx Arthritis: No Hx Rheumatoid Arthritis: No Hx Gout: No Recent Onset of an Orthopedic Problem: No Endocrine Hx Diabetes: No Thyroid Disease: Yes (THYROID CANCER/TOTAL THYROIDECTOMY/ON MEDS) Hx Steroid Therapy: No Psycho/Social Hx Substance Use: No Hx Alcohol Use: No Hx Anxiety: Yes (ON MED) Hx Depression: Yes (ON MED) Mental Illness: No Hx Dementia: No Miscellaneous Hx Cancer: Yes (RT TESTICULAR, THYROID) Recent Exposure to Contagious Disease: No Hx of C-Diff: No Any Loose Teeth: No Allergies No Known Allergies Allergy (Verified 08/24/23 08:05) Discharge Is Pt Admitted From a Fpc, or a Half-Way: No Who Could Help: After D/C, Where Do you Plan to Go: Return Home Vital Signs Vital Signs Vital Signs: 08/24/23 08:05 08/24/23 08:05 Temperature 97.6 F L Temperature Source Temporal Pulse Rate 71 Respiratory Rate 16 Respiratory Pattern Normal Blood Pressure 136/90 H Blood Pressure Mean 105 Blood Pressure Source Monitor Blood Pressure Position Semi-Fowlers Blood Pressure Location Right Arm Pulse Ox 98 Oxygen Delivery Method Room Air Weight Weight: 196 lb 3.382 oz Body Mass Index (BMI) 27.3 Physical Exam Const alert and oriented x3 HEENT normocephalic Eyes PERRL Resp normal respiratory effort and normal air movement Cardio regular rate and regular rhythm GI soft to palpation, non-tender and non-distended Extremity normal to inspection Assessment & Plan Assessment/Plan (1) Encounter for screening for malignant neoplasm of colon: PLAN: I explained endoscopy in detail to the patient. I explained the risks including but not limited to stroke or heart attack with anesthesia, perforation of the GI tract, bleeding, infection. I explained that any of these could necessitate further emergency surgery. The patient understands and all questions were answered sufficiently. The patient wishes to proceed with procedure. Jenaro Munoz MD Pager: [facility] [address] [place] [address] [address] [place] [address] Office: Surgery Risks - Colonoscopy Risks Include but are not Limited To: Risks include but are not limited to: Bleeding, perforation requiring further surgery, inability to complete colonoscopy requiring barium enema.
--- NOTE | 2023-08-24 09:00 | OP.COLON_ITS ---
Patient Name: Felix Rico Procedure Date: 08/24/2023 8:32 AM Date of : 1975 Age: 48 Procedure: Colonoscopy Indications: Screening for colorectal malignant neoplasm Providers: Jenaro Munoz MD Referring MD: Lorena Crump Medicines: Monitored Anesthesia Care Patient Profile: This is a 48 year old male. Refer to note in patient chart for documentation of history and physical. Last Colonoscopy: none. The patient's first colonoscopy is today. Complications: No immediate complications. Procedure: Pre-Anesthesia Assessment: - Prior to the procedure, a History and Physical was performed, and patient medications and allergies were reviewed. The patient's tolerance of previous anesthesia was also reviewed. The risks and benefits of the procedure and the sedation options and risks were discussed with the patient. All questions were answered, and informed consent was obtained. Prior Anticoagulants: The patient has taken no anticoagulant or antiplatelet agents. After reviewing the risks and benefits, the patient was deemed in satisfactory condition to undergo the procedure. After I obtained informed consent, the scope was passed under direct vision. Throughout the procedure, the patient's blood pressure, pulse, and oxygen saturations were monitored continuously. The colonoscope was introduced through the anus and advanced to the cecum, identified by appendiceal orifice and ileocecal valve. The colonoscopy was performed without difficulty. The patient tolerated the procedure well. The quality of the bowel preparation was good. The ileocecal valve, appendiceal orifice, and rectum were photographed. Scope In: 8:40:56 AM Scope Withdrawal Time 0 hours 8 minutes 5 seconds Scope Out: 8:57:02 AM Total Procedure Duration Time 0 hours 16 minutes 6 seconds Findings: Multiple small patchy angioectasias without bleeding were found in the entire colon. The exam was otherwise without abnormality on direct and retroflexion views. Impression: - Multiple non-bleeding colonic angioectasias. - The examination was otherwise normal on direct and retroflexion views. - No specimens collected. Recommendation: - Discharge patient to home. - Resume previous diet. - Continue present medications. - Repeat colonoscopy in 10 years for screening purposes. Procedure Code(s): --- Professional --- 96702, Colonoscopy, flexible; diagnostic, including collection of specimen(s) by brushing or washing, when performed (separate procedure) Diagnosis Code(s): --- Professional --- Z12.11, Encounter for screening for malignant neoplasm of colon K55.20, Angiodysplasia of colon without hemorrhage CPT copyright 2021 [employer]. All rights reserved. The codes documented in this report are preliminary and upon hard tile setter review may be revised to meet current compliance requirements. Jenaro Munoz MD 08/24/2023 8:59:55 AM This report has been signed electronically. Number of Addenda: 0 Note Initiated On: 08/24/2023 8:32 AM
--- NOTE | 2023-08-24 09:00 | OP.CCLET_ITS ---
08/24/2023 Lorena Crump [address] [place] [address] Re : Colonoscopy procedure for Felix Rico Dear Dr. Crump This procedure was performed on Thursday, August 24, 2023. My impressions and recommendations are as follows: Impressions : - Multiple non-bleeding colonic angioectasias. - The examination was otherwise normal on direct and retroflexion views. - No specimens collected. Recommendations : - Discharge patient to home. - Resume previous diet. - Continue present medications. - Repeat colonoscopy in 10 years for screening purposes. My findings are described in the full procedure note, which is enclosed. If I can be of further assistance, please feel free to contact me at Doctor phone number(s): , Work: . Sincerely, Jenaro Munoz MD 08/24/2023 8:59:55 AM This report has been signed electronically.
== END 2023-08-24 09:50 | disposition home or self-care (01) ==
LOC: EN 07:53 → AC 07:54
PROVIDERS: PCP Family Medicine; Referring Provider Family Medicine; Visit Provider Surgery
PROC: 0DJD8ZZ Inspection of Lower Intestinal Tract, Via Natural or Artificial Opening Endoscopic (ICD-10-PCS; CPT 45378; principal; 2023-08-24 08:40)
DX: Z12.11 Encounter for screening for malignant neoplasm of colon (principal); K55.20 Angiodysplasia of colon without hemorrhage; E03.9 Hypothyroidism, unspecified; K21.9 Gastro-esophageal reflux disease without esophagitis; F17.220 Nicotine dependence, chewing tobacco, uncomplicated
CPT/HCPCS: 45378; J7120; J2405

== ENCOUNTER → 2024-03-09 | Outpatient (CLI) | payer OTHER, SELFPAY ==
[2024-03-09 18:46] LABS: Free T3 2.7 pg/mL (2.18-3.98); T4 Free Direct 0.91 ng/dL (0.76-1.46)
== END | disposition home or self-care (01) ==
PROVIDERS: PCP Family Medicine; Referring Provider Family Medicine; Visit Provider Family Medicine
DX: E03.9 Hypothyroidism, unspecified (principal)
CPT/HCPCS: 36415; 84439; 84443; 84481

== ENCOUNTER 2025-06-16 16:10 | Emergency (ER) | payer OTHER, SELFPAY ==
[2025-06-16 16:10] VITALS: BP 166/102; PULSE 80; RESP 18; TEMP 36.3; O2SAT 95; BMI 28.3
--- NOTE | 2025-06-16 17:10 | CT_ITS ---
PROCEDURE: CTA CHEST W/WO CONTRAST 06/16/2025 REASON FOR EXAM: DISSECTION TECHNIQUE: Procedure Code: [id number] Modality: CT Procedure: CTA CHEST W/WO CONTRAST Multiplanar Sagittal and Coronal images were obtained. CONTRAST: 100 mL of Isovue 370 One or more dose reduction techniques were used (e.g., Automated exposure control, adjustment of the mA and/or kV according to patient size, use of iterative reconstruction technique). RADIATION DOSE SUMMARY: DLP: 2084 MGycm COMPARISON: None FINDINGS: LUNGS AND PLEURA: No infiltrate. Bibasilar subsegmental atelectasis. No pleural effusion. No pneumothorax. No pleural thickening. No nodules or masses. MEDIASTINUM: No lymphadenopathy or mass. Mild cardiomegaly. No acute thoracic aortic pathology. No aortic dissection. The pulmonary trunk and branches of the vessels in the mediastinum are within normal limits. SUPRACLAVICULAR AND AXILLARY: No abnormalities seen in these regions. No mass or significant lymphadenopathy. UPPER ABDOMEN: The visualized upper abdomen is unremarkable. BONES AND SOFT TISSUES: The bony structures show no significant acute findings. No focal bony mass lesions noted. The subcutaneous soft tissues are unremarkable. CT/CTA Chest W/WO Contrast IMPRESSION: No acute thoracic aortic pathology. No aortic dissection. Reading Location: [id number]
--- NOTE | 2025-06-16 17:11 | EKG12_ITS ---
Test Reason : GENERAL Blood Pressure : */* mmHG Vent. Rate : 90 BPM Atrial Rate : 90 BPM P-R Int : 192 ms QRS Dur : 88 ms QT Int : 356 ms P-R-T Axes : 39 -2 27 degrees QTcB Int : 435 ms Normal sinus rhythm with sinus arrhythmia Possible Inferior infarct , age undetermined Abnormal ECG Confirmed by MARISABEL WATT, RHODA ([id number]), newspaper managing editor SHIREEN CHEN ([id number]) on 06/18/2025 1:39:15 PM Referred By: Confirmed By: RHODA PETIT MD
--- NOTE | 2025-06-16 17:12 | EDS_ITS ---
HPI History of Present Illness Chief Complaint: Dental Informant: patient and spouse/S.O. Narrative Narrative: 50-year-old male presented to the emergency room with sudden onset of pain in the right teeth. Patient states he was sitting watching [employer] football when he suddenly got a severe pain in his teeth. He states that he cannot tell if it is the upper or lower teeth. States he tried to floss did not find anything. He states that when he breathes in causes worsening pain. He denies any chest pain he denies any back pain no headache. He denies any palpitations. Denies any arm or leg symptoms. He denies any trauma to the teeth. Family states that they called dentistry was advised that he should come to the emergency department. He takes Synthroid for about the past 10 years. He denies any sneezing coughing or trauma prior to the event. He states he was not chewing when the pain started. He has not had dental pain over the past couple weeks. PFSH PFS Medical History Cancer Anxiety Gastric reflux Family hx colonic polyps Hypothyroidism GERD (gastroesophageal reflux disease) Depression Testicular cancer Thyroid cancer Home Medications ?Medication ?Instructions ?Recorded ?Last Taken ?Type levothyroxine 100 mcg tablet 100 mcg PO MOTUWETHFRSA 0 04/12/19 08/24/23 History levothyroxine 25 mcg capsule 50 mcg PO PETERSON 04/12/19 Unk nown History amoxicillin 875 mg-potassium 875 mg PO Q12H #20 TABLET S 06/16/25 Unknown Rx clavulanate 125 mg tablet ketorolac 10 mg tablet 10 mg PO Q8H PRN pain #15 ta bs 06/16/25 Unknown Rx oxycodone-acetaminophen 5 mg-325 1 tab PO Q6H PRN PRN Pain 3 days 06/16/25 Unknown Rx mg tablet #12 TABLETS Allergy/AdvReac Type Severity Reaction Status Date / Time No Known Allergies Allergy Verified 06/16/25 16:14 Family History Mother Cancer melanoma Hypertension Colon polyps Surgical History History of esophagogastroduodenoscopy (EGD) (~10/13/17) S/P total thyroidectomy History of surgical removal of testicle Social History household members: spouse current occupational status: employed Smoking Status: Never smoker Smokeless tobacco user: chewing tobacco alcohol intake: current substance use type: does not use ROS ROS ED Constitutional Constitutional ED: Denies chills, fever(s) or weight loss Eyes Eyes: Denies change in vision or diplopia ENT ENT ED: Reports other Details: See history of present illness ; Denies ear pain, rhinorrhea or sore throat Cardiovascular Cardiovascular: Denies chest pain, orthopnea, palpitations or racing heartbeat Respiratory/Chest Respiratory/Chest: Denies cough, dyspnea or orthopnea Gastrointestinal Gastrointestinal: Denies abdominal pain, diarrhea, nausea or vomiting Genitourinary Genitourinary ED: Denies dysuria, hematuria or urinary frequency Musculoskeletal Musculoskeletal: Denies arthralgias, back pain, myalgias or neck pain Integumentary Denies abscess or rash Neurologic Neurologic: Denies headache(s), paresthesias or weakness Psychiatric Psychiatric: Denies anxiety, depression, suicidal ideation or suicidal thoughts Endocrine Endocrinology: Denies polydipsia, polyphagia or polyuria Allergic/Immunologic Allergic/Immunologic ED: Denies mouth swelling, tongue swelling or urticaria EXAM Physical Exam Narrative Exam Narrative: Patient appears very uncomfortable holding the right side of his face. Const Vital Signs: 06/16/25 16:10 06/16/25 18:26 06/16/25 21:29 Temperature 97.4 F L 97.9 F Temperature Source Temporal Pulse Rate 80 75 66 Respiratory Rate 18 22 H 17 Blood Pressure 166/102 H 151/97 H 146/94 H Blood Pressure Mean 123 115 111 Pulse Ox 95 96 96 Oxygen Delivery Method Room Air Room Air Positive well nourished and well developed General Appearance ED: well developed HEENT Reports normocephalic, head/scalp atraumatic, TM's clear and moist mucous membranes HEENT Narrative: I do not appreciate any trismus. There is no focal gum swelling. I do not appreciate any swelling of the floor the mouth. I do not appreciate any facial swelling or erythema. There is some prior dental fillings present at the volar on the right lower. There is no 1 particular tooth that is more tender than others. Tympanic Membrane ED: Yes TM's clear Eyes PERRL and EOMs intact bilaterally Neck no lymphadenopathy, supple and no JVD Resp normal respiratory effort and clear to auscultation bilaterally Cardio regular rate, regular rhythm and no murmurs GI normal to inspection, nondistended, normoactive bowel sounds and non-tender Palpation: soft Back/Spine no CVA tenderness and normal ROM Extremity normal to inspection General Extremety ED: Negative for edema General Extremity: Negative for edema Neuro oriented x3 and CN's II-XII intact bilaterally Sensorium / Orientation: alert Motor Exam: strength 5/5 throughout Psych mental status grossly normal Mood & Affect: Negative for depressed or tearful Skin no rashes or lesions noted and no wounds MDM MDM MDM Narrative Medical decision making narrative: Differential diagnosis includes but not limited to dental infection/caries dental fracture Kwame's angina carotid and aortic dissection and acute coronary syndrome Patient's EKG is a normal sinus rhythm with no concerning ST segments. 2 sets of cardiac enzymes are within normal limits. He has a concern for dissection CT of the neck and thorax was obtained. Read by radiology and reviewed by myself. This was negative for dissection. I do not see any obvious abscess of the mouth. White count 7.3 hemoglobin 16.4. Patient received initially a dose of Dilaudid which he states did help his pain but the Toradol did more for his pain. He has been resting more comfortably blood pressure is improved down to 146/94. Spoke with the patient given the above results. Unguinal place him on some Augmentin as well as pain medication and asked that he see dentistry as soon as possible for their opinion. History & Record Review Discussion w/independent historian: Patient and Significant other Lab Data Attestation: I reviewed the patient's lab results. Labs: Laboratory Results - last 24 hr 06/16/25 06/16/25 17:20 19:25 WBC 7.3 RBC 5.09 Hgb 16.4 Hct 45.5 MCV 89.4 MCH 32.2 H MCHC 36.0 RDW Std Deviation 41.1 RDW Coeff of Paula 12.4 Plt Count 203 MPV 9.8 Immature Gran % (Auto) 0.400 Neut % (Auto) 78.3 H Lymph % (Auto) 10.9 L Hamblen % (Auto) 8.5 Eos % (Auto) 1.2 Baso % (Auto) 0.7 Absolute Neuts (auto) 5.7 Absolute Lymphs (auto) 0.79 L Nucleated RBC % 0 PT 13.5 INR 1.0 APTT 27.2 Sodium 140 Potassium 4.2 Chloride 106 Carbon Dioxide 22.0 Anion Gap 12 BUN 16 Creatinine 1.17 Estim Creat Clear Calc 86.65 Est GFR (MDRD) Non-Af 75 BUN/Creatinine Ratio 13.3 Glucose 101 H Calcium 9.5 Troponin T High Sens < 6 Troponin T Hi Sens 2 Hr 10 Radiography Diagnostic Testing: Clinical Impression(s) from Imaging Studies Chest CTA 06/16/25 17:10 IMPRESSION: No acute thoracic aortic pathology. No aortic dissection. Reading Location: [id number] Neck CTA 06/16/25 17:45 IMPRESSION: Unremarkable CT angiogram of the neck with no evidence of dissection, occlusion, or stenosis. Reading [facility] EKG Initial EKG: Attestation: I personally reviewed and interpreted this EKG as follows: Comments: Normal sinus rhythm ventricular rate of 90 bpm Discharge Plan Triage Chief Complaint: Dental ED Provider: Jese Varghese Dx/Rx/DC Orders Clinical Impression: Pain, dental, Hypertension Instructions: Hypertension Dc, ED Dental Pain Prescriptions: New ketorolac 10 mg tablet 10 mg PO Q8H PRN (Reason: pain) Qty: 15 0RF Rx Instructions: maximum total duration of 5 days from all oral, intranasal, or parenteral formulations amoxicillin-pot clavulanate 875-125 mg tablet 875 mg PO Q12H Qty: 20 0RF oxycodone-acetaminophen 5-325 mg tablet 1 tab PO Q6H PRN PRN (Reason: Pain) 3 Days Qty: 12 0RF No Action levothyroxine 100 mcg tablet 100 mcg PO MOTUWETHFRSA Patient Comments: Wednesday-Wednesday levothyroxine 25 mcg capsule 50 mcg PO PETERSON Patient Comments: Wednesday only Primary Care Provider: Lorena Crump Referrals: Lorena Crump DO [Primary Care Provider, Family Practice] - 1 Week Activity Restrictions/Additional Instructions: Please follow-up with dentistry as soon as possible Print Language: Occitan Disposition Disposition: Home, Self Care Discharge Date/Time: 06/16/25 22:04
[2025-06-16 17:34] LABS: Hematocrit 45.5 % (40-54); Hemoglobin 16.4 g/dL (13.0-16.5); Immature Granulocytes Count 0.030 X10^3/uL (0.0-0.0); Mean Corp Hgb Conc 36.0 g/dL (32-36); Mean Corpuscular Volume 89.4 fL (80-94); Mean Platelet Vol. 9.8 fl (6.2-12.0); NRBC Flagged by Analyzer 0 % (0-5); Platelet Count 203 K/mm3 (150-450); RBC Distribution Width CV 12.4 % (11.6-14.6); RBC Distribution Width SD 41.1 fl (35.1-43.9); Red Blood Count 5.09 M/mm3 (4.6-6.2); White Blood Count 7.3 K/mm3 (4.4-11.0)
--- OUTSIDE RECORDS SUMMARY | 2025-06-16 17:35 | XMS RPT_ITS | CCD ---
Author Organization [facility] Care Team Providers Care Senior Abap Developer Name Role Phone Dr. Lorena Crump Primary Care Provider Raina Medina Attending Provider Unavailable Theron, Dr. Carrillo Referring Provider Dr. Jenaro Munoz Attending Provider [phone] Dr. Jenaro Munoz Other Provider Malys, Lorena Primary Care Unavailable Malys, Lorena Referring Unavailable Malys, Lorena Attending Unavailable Raina Medina Attending Unavailable Malys, Lorena Primary Care Unavailable Malys, Lorena Primary Care Unavailable Malys, Lorena Referring Unavailable Alexander, Jenaro Attending Unavailable CalabrJenaro shultz Consulting Unavailable Malys, Lorena Primary Care Unavailable Malys, Lorena Referring Unavailable Jenaro Munoz Attending Unavailable Malys, Lorena Primary Care Unavailable Malys, Lorena Referring Unavailable Malys, Lorena Attending Unavailable Malys, Lorena Primary Care Unavailable Malys, Lorena Referring Unavailable Malys, Lorena Attending Unavailable Medications Current Medications Medication Drug Class(es) Dates Sig (Normalized) Sig (Original) levothyroxine sodium 0.025 mg oral capsule (18 sources) l-Thyroxine Start: 04-12-2019 levothyroxine 25 mcg capsule Active 50 MCG PO PETERSON April 11, 2019 11:00pm Start: 04-12-2019 take 1 capsule by mo [facility] once daily levothyroxine 25 mcg capsule Active 25 MCG PO DAILY April 11, 2019 11:00pm Start: 04-19-2015 End: 04-12-2019 Levothyroxine Active 100 MCG PO MOTUWETHFRSA April 12, 2019 1:18pm omeprazole 40 mg delayed release oral capsule (6 sources) Proton Pump Inhibitor Start: 04-12-2019 take 80 mg by mouth once daily Omeprazole Active 80 MG PO DAILY April 11, 2019 11:00pm Start: 04-12-2019 take 40 mg by mouth once daily Omeprazole Active 40 MG PO DAILY April 11, 2019 11:00pm Completed/Discontinued Medications Medication Drug Class(es) Dates Sig (Normalized) Sig (Original) citalopram 10 mg oral tablet (6 sources) Serotonin Reuptake Inhibitor Start: 09-05-2017 End: 04-12-2019 take 10 mg by mouth once daily Citalopram Discontinued 10 MG PO DAILY September 05, 2017 12:00am April 12, 2019 1:18pm Problems Active Problems Problem Classification Problem Date Documented Date Episodic/Chronic Esophageal disorders (6 sources) Gastroesophageal reflux disease without esophagitis; Translations: [Gastro-esophageal reflux disease without esophagitis] 10-13-2017 Chronic Other connective tissue disease (6 sources) Pain in upper limb; Translations: [Pain in right arm] 11-11-2021 Episodic Thyroid disorders (2 sources) Hypothyroidism, unspecified; Translations: [Hypothyroidism, unspecified] Onset: 08-10-2023 Chronic Past or Other Problems Problem Classification Problem Date Documented Da te Episodic/Chronic Other screening for suspected conditions (not mental disorders or infectious disease) (5 sources) Patient encounter status; Translations: [Encounter for screening for malignant neoplasm of colon] Onset: 08-29-2023 08-06-2023 Episodic Results Test Name Value Interpretation Reference Range Facility Free T3on 03-09-2024 Free T3 [Mass/Vol] 2.7 pg/mL Normal 2.18-3.98 [facility] Comment on above: Performed By: #### L 501.06385, L506.0400, L501.9520 #### Laboratory [address] [facility] [place], [place], [address] T4 Free Directon 03-09-2024 T4 FREE DIRECT 0.91 ng/dL Normal 0.76-1.46 Comment on above: Performed By: #### L 501.13396, L506.0400, L501.9520 #### [id number] [facility] [place], [place], [address] Thyroid Stim Hormone (TSH)on 03-09-2024 TSH 2.750 uIU/mL Normal 0.358-3.740 Comment on above: Performed By: #### L 501.66875, L506.0400, L501.9520 #### [id number] [place], [address] Colonoscopy Reporton 024 Colonoscopy Report [facility] Medical Records Department [address] [place] [address] Colonoscopy Report MR#: [id number] Acct: [id number] Name: FELIX RICO Rep #: [id number] : 1975 48 From: Jenaro Munoz MD PCP: Dr. Lorena Crump, DO Status:[facility] Patient Name: Felix Rico Procedure Date: 08/24/2023 8:32 AM Date of : 1975 Age: 48 Procedure: Colonoscopy Indications: Screening for colorectal malignant neoplasm Providers: Jenaro Munoz MD Referring MD: Lorena Crump Medicines: Monitored Anesthesia Care Patient Profile: This is a 48 year old male. Refer to note in patient chart for documentation of history and physical. Last Colonoscopy: none. The patient's first colonoscopy is today. Complications: No immediate complications. Procedure: Pre-Anesthesia Assessment: - Prior to the procedure, a History and Physical was performed, and patient medications and allergies were reviewed. The patient's tolerance of previous anesthesia was also reviewed. The risks and benefits of the procedure and the sedation options and risks were discussed with the patient. All questions were answered, and informed consent was obtained. Prior Anticoagulants: The patient has taken no anticoagulant or antiplatelet agents. After reviewing the risks and benefits, the patient was deemed in satisfactory condition to undergo the procedure. After I obtained informed consent, the scope was passed under direct vision. Throughout the procedure, the patient's blood pressure, pulse, and oxygen saturations were monitored continuously. The colonoscope was introduced through the anus and advanced to the cecum, identified by appendiceal orifice and ileocecal valve. The colonoscopy was performed without difficulty. The patient tolerated the procedure well. The quality of the bowel preparation was good. The ileocecal valve, appendiceal orifice, and rectum were photographed. Scope In: 8:40:56 AM Scope Withdrawal Time 0 hours 8 minutes 5 seconds Scope Out: 8:57:02 AM Total Procedure Duration Time 0 hours 16 minutes 6 seconds Findings: Multiple small patchy angioectasias without bleeding were found in the entire colon. The exam was otherwise without abnormality on direct and retroflexion views. Impression: - Multiple non-bleeding colonic angioectasias. - The examination was otherwise normal on direct and retroflexion views. - No specimens collected. Recommendation: - Discharge patient to home. - Resume previous diet. - Continue present medications. - Repeat colonoscopy in 10 years for screening purposes. Procedure Code(s): --- Professional --- 92924, Colonoscopy, flexible; diagnostic, including collection of specimen(s) by brushing or washing, when performed (separate procedure) Diagnosis Code(s): --- Professional --- Z12.11, Encounter for screening for malignant neoplasm of colon K55.20, Angiodysplasia of colon without hemorrhage CPT copyright 2021 [employer]. All rights reserved. The codes documented in this report are preliminary and upon forest scientist review may be revised to meet current compliance requirements. Jenaro Munoz MD 08/24/2023 8:59:55 AM This report has been signed electronically. Number of Addenda: 0 Note Initiated On: 08/24/2023 8:32 AM 08/24/23 0900 Date Jenaro Munoz MD Cosigner Signature: Date (if indicated) CC: Dr. Jenaro Munoz MD; Dr. Lorena Crump DO Date Dictated: 08/24/23 0832 Date Transcribed: Civil Cad Designer: MARYLOU Signed Normal Lipid Profileon 08-07-2023 Cholesterol [Mass/Vol] 179 mg/dL Normal 200 [facility] Comment on above: Order Comment: ADD O N LIPID Result Comment: <200 mg/dL Desirable 200-240 mg/dL Borderline >240 mg/dL High Risk Performed By: #### L 501.82402, L500.4050, L501.9520, L501.9910, L500.4100, L100.0100, L506.0400 #### Laboratory [address] [place], [address] Cholesterol in HDL [Mass/Vol] 52 mg/dL Normal Comment on above: Order Comment: ADD O N LIPID Result Comment: The drugs N-Acetylcysteine and Metamizole may falsely depress this assay. Reference Range HDL <40 mg/dL Low HDL Cholesterol HDL >or= 60 mg/dL High HDL Cholesterol Performed By: #### L 501.65696, L500.4050, L501.9520, L501.9910, L500.4100, L100.0100, L506.0400 #### Laboratory [address] [place], [address] Cholesterol in LDL [Mass/Vol] 112 mg/dL Normal 0-130 Comment on above: Order Comment: ADD O N LIPID Performed By: #### L 501.55887, L500.4050, L501.9520, L501.9910, L500.4100, L100.0100, L506.0400 #### Laboratory [address] [place], [address] Cholesterol in VLDL [Mass/Vol] 15 mg/dL Normal 5-40 Comment on above: Order Comment: ADD O N LIPID Performed By: #### L 501.39700, L500.4050, L501.9520, L501.9910, L500.4100, L100.0100, L506.0400 #### Laboratory [address] [place], [address] Triglyceride [Mass/Vol] 77 mg/dL Normal [facility] Comment on above: Order Comment: ADD O N LIPID Result Comment: The drugs N-Acetylcysteine and Metamizole may falsely depress this assay. Serum Triglycerides Reference Interval Normal <150 mg/dL Borderline high 150 - 199 mg/dL High 200 - 499 mg/dL Very High > or = 500 mg/dL Performed By: #### L 501.84741, L500.4050, L501.9520, L501.9910, L500.4100, L100.0100, L506.0400 #### Laboratory [address] [place], [address] Absolute lymphocyte countOrd ered By: Lorena Crump on 08-06-2023 Lymphocytes Auto (Unsp spec) [#/Vol] 1.45 10*3/uL 0.83-4.51 Basophil percentageOrdered B y: Lorena Crump on 08-06-2023 Basophils/100 WBC (Bld) 1.2 % 0-1 [facility] Bilirubin [Mass/Vol] 1.20 mg/dL 0.20-1.00 [facility] Comment on above: For patients on eltr ombopag therapy, use of Dimension Leon TBIL is not recommended. Chloride [Moles/Vol] 105 mmol/L 98-107 [facility] Cholesterol [Mass/Vol] 179 mg/dL <200 [facility] Comment on above: <200 mg/dL Desirable 200-240 mg/dL Borderline >240 mg/dL High Risk Eosinophils/100 WBC (Bld) 2.3 % 0-5 Glucose [Mass/Vol] 84 mg/dL 74-106 [facility] Neutrophils (Bld) [#/Vol] 3.0 10*3/uL 2.0-7.7 Neutrophils/100 WBC (Bld) 57.1 % 47-70 Potassium [Moles/Vol] 3.9 mmol/L 3.5-5.1 [facility] Protein [Mass/Vol] 7.5 g/dL 6.4-8.2 [facility] Sodium [Moles/Vol] 139 mmol/L 136-145 [facility] Triglyceride [Mass/Vol] 77 mg/dL <199 [facility] Comment on above: The drugs N-Acetylcy steine and Metamizole may falsely depress this assay.Serum Triglycerides Reference Interval Normal <150 mg/dL Borderline high 150 - 199 mg/dL High 200 - 499 mg/dL Very High > or = 500 mg/dL WBC (Bld) [#/Vol] 5.2 10*3/uL 4.4-11.0 [facility] Blood erythrocytes count (nu mber/volume)Ordered By: Lorena Crump on 08-06-2023 RBC (Bld) [#/Vol] 5.33 10*6/uL 4.6-6.2 [facility] Blood hemoglobin measurement (mass/volume)Ordered By: Lorena Crump on 08-06-2023 Hemoglobin (Bld) [Mass/Vol] 16.9 g/dL 13.0-16.5 Blood lymphocytes/100 leukoc ytesOrdered By: Lorena Crump on 08-06-2023 Lymphocytes/100 WBC (Bld) 28.0 % 19-41 Blood monocytes/100 leukocyt esOrdered By: Lorena Crump on 08-06-2023 Monocytes/100 WBC (Bld) 11.2 % 0-10 [facility] Blood platelet mean volumeOr dered By: Lorena Crump on 08-06-2023 Platelet mean volume (Bld) [Entitic vol] 10.4 fL 6.2-12.0 CBC W/Diff, Automatedon 07-26 Absolute Lymph 1.45 X10 3/uL Normal 0.83-4.51 Comment on above: Performed By: #### L 501.13868, L500.4050, L501.9520, L501.9910, L500.4100, L100.0100, L506.0400 #### Laboratory [facility] [place], [address] Absolute Neut 3.0 X10 3/uL Normal 2.0-7.7 Comment on above: Performed By: #### L 501.41273, L500.4050, L501.9520, L501.9910, L500.4100, L100.0100, L506.0400 #### Laboratory [address] [place], [address] Basophils/100 WBC (Bld) 1.2 % High 0-1 [facility] Comment on above: Performed By: #### L 501.18478, L500.4050, L501.9520, L501.9910, L500.4100, L100.0100, L506.0400 #### Laboratory [address] [place], [address] Eosinophils/100 WBC (Bld) 2.3 % Normal 0-5 Comment on above: Performed By: #### L 501.60759, L500.4050, L501.9520, L501.9910, L500.4100, L100.0100, L506.0400 #### Laboratory [address] [place], [address] Erythrocyte distribution width (RBC) [Ratio] 12.5 % Normal 11.6-14.6 Comment on above: Performed By: #### L 501.94102, L500.4050, L501.9520, L501.9910, L500.4100, L100.0100, L506.0400 #### Laboratory [address] [place], [address] Hematocrit (Bld) [Volume fraction] 49.4 % Normal 40-54 Comment on above: Performed By: #### L 501.78956, L500.4050, L501.9520, L501.9910, L500.4100, L100.0100, L506.0400 #### Laboratory [address] [place], [address] Hemoglobin (Bld) [Mass/Vol] 16.9 g/dL High 13.0-16.5 Comment on above: Performed By: #### L 501.65030, L500.4050, L501.9520, L501.9910, L500.4100, L100.0100, L506.0400 #### Laboratory [address] [place], [address] IG% 0.200 Normal 0.0-0.9 Comment on above: Result Comment: IG% - Immature Granulocytes (promyelocytes, myelocytes and metamyelocytes) > 1% indicates that a LEFT SHIFT is Present. Performed By: #### L 501.62745, L500.4050, L501.9520, L501.9910, L500.4100, L100.0100, L506.0400 #### Laboratory [address] [place], [address] Lymphocytes/100 WBC (Bld) 28.0 % Normal 19-41 Comment on above: Performed By: #### L 501.85165, L500.4050, L501.9520, L501.9910, L500.4100, L100.0100, L506.0400 #### Laboratory [address] [place], [address] MCH (RBC) [Entitic mass] 31.7 pg Normal 27.0-32.0 Comment on above: Performed By: #### L 501.57622, L500.4050, L501.9520, L501.9910, L500.4100, L100.0100, L506.0400 #### Laboratory [address] [place], [address] MCHC (RBC) [Mass/Vol] 34.2 g/dL Normal 32-36 [facility] Comment on above: Performed By: #### L 501.92704, L500.4050, L501.9520, L501.9910, L500.4100, L100.0100, L506.0400 #### Laboratory [address] [place], [address] MCV (RBC) [Entitic vol] 92.7 fL Normal 80-94 [facility] Comment on above: Performed By: #### L 501.72038, L500.4050, L501.9520, L501.9910, L500.4100, L100.0100, L506.0400 #### Laboratory [address] [place], [address] Monocytes/100 WBC (Bld) 11.2 % High 0-10 [facility] Comment on above: Performed By: #### L 501.07559, L500.4050, L501.9520, L501.9910, L500.4100, L100.0100, L506.0400 #### Laboratory [address] [place], [address] Neutrophils/100 WBC (Bld) 57.1 % Normal 47-70 Comment on above: Performed By: #### L 501.77603, L500.4050, L501.9520, L501.9910, L500.4100, L100.0100, L506.0400 #### Laboratory [address] [place], [address] Nucleated RBC (Bld) [#/Vol] 0 10*3/uL Normal 0-5 Comment on above: Performed By: #### L 501.85602, L500.4050, L501.9520, L501.9910, L500.4100, L100.0100, L506.0400 #### Laboratory [address] [place], [address] Platelet mean volume (Bld) [Entitic vol] 10.4 fL Normal 6.2-12.0 Comment on above: Performed By: #### L 501.69633, L500.4050, L501.9520, L501.9910, L500.4100, L100.0100, L506.0400 #### Laboratory [address] [place], [address] Platelets (Bld) [#/Vol] 227 10*3/uL Normal 150-450 Comment on above: Performed By: #### L 501.55797, L500.4050, L501.9520, L501.9910, L500.4100, L100.0100, L506.0400 #### Laboratory [address] [place], [address] RBC (Bld) [#/Vol] 5.33 10*6/uL Normal 4.6-6.2 [facility] Comment on above: Performed By: #### L 501.85133, L500.4050, L501.9520, L501.9910, L500.4100, L100.0100, L506.0400 #### Laboratory [address] [place], [address] RDW SD 42.5 fl Normal 35.1-43.9 Comment on above: Performed By: #### L 501.99913, L500.4050, L501.9520, L501.9910, L500.4100, L100.0100, L506.0400 #### Laboratory [address] [place], [address] WBC (Bld) [#/Vol] 5.2 10*3/uL Normal 4.4-11.0 [facility] Comment on above: Performed By: #### L 501.89451, L500.4050, L501.9520, L501.9910, L500.4100, L100.0100, L506.0400 #### Laboratory [address] [place], [address] Comprehensive Metabolic Prof ilon 08-06-2023 Albumin [Mass/Vol] 4.3 g/dL Normal 3.2-5.0 [facility] Comment on above: Performed By: #### L 501.18705, L500.4050, L501.9520, L501.9910, L500.4100, L100.0100, L506.0400 #### Laboratory [address] [place], [address] Albumin/Globulin [Mass ratio] 1.3 {ratio} Normal 0.9-2.4 Comment on above: Performed By: #### L 501.53734, L500.4050, L501.9520, L501.9910, L500.4100, L100.0100, L506.0400 #### Laboratory [address] [place], [place], [address] ALK P 62 U/L Normal 45-117 Comment on above: Performed By: #### L 501.55621, L500.4050, L501.9520, L501.9910, L500.4100, L100.0100, L506.0400 #### Laboratory [address] [place], [place], [id number] ALT [Catalytic activity/Vol] 36 U/L Normal 16-61 Comment on above: Performed By: #### L 501.51798, L500.4050, L501.9520, L501.9910, L500.4100, L100.0100, L506.0400 #### Laboratory [address] [place], [address] AST [Catalytic activity/Vol] 26 U/L Normal 15-37 Comment on above: Performed By: #### L 501.15997, L500.4050, L501.9520, L501.9910, L500.4100, L100.0100, L506.0400 #### Laboratory [address] [place], [address] Bilirubin [Mass/Vol] 1.20 mg/dL High 0.20-1.00 [facility] Comment on above: Result Comment: For patients on eltrombopag therapy, use of Dimension Leon TBIL is not recommended. Performed By: #### L 501.15014, L500.4050, L501.9520, L501.9910, L500.4100, L100.0100, L506.0400 #### Laboratory [address] [place], [address] BUN/CRE 10.6 RATIO Normal 10-20 Comment on above: Performed By: #### L 501.83666, L500.4050, L501.9520, L501.9910, L500.4100, L100.0100, L506.0400 #### Laboratory [address] [place], [address] CA,Total 9.3 mg/dL Normal 8.5-10.1 Comment on above: Performed By: #### L 501.45963, L500.4050, L501.9520, L501.9910, L500.4100, L100.0100, L506.0400 #### Laboratory [address] [place], [address] Chloride [Moles/Vol] 105 mmol/L Normal 98-107 [facility] Comment on above: Performed By: #### L 501.61745, L500.4050, L501.9520, L501.9910, L500.4100, L100.0100, L506.0400 #### Laboratory [address] [place], [address] CO2 [Moles/Vol] 28.0 mmol/L Normal 21.0-32.0 Comment on above: Performed By: #### L 501.77026, L500.4050, L501.9520, L501.9910, L500.4100, L100.0100, L506.0400 #### Laboratory [address] [place], [address] Creatinine [Mass/Vol] 1.13 mg/dL Normal 0.70-1.30 [facility] Comment on above: Result Comment: The validity of the calculated GFR GFRAA in patients over 70 years has not been determined. Clinical correlation is essential. Performed By: #### L 501.87036, L500.4050, L501.9520, L501.9910, L500.4100, L100.0100, L506.0400 #### Laboratory [address] [place], [place], [id number] (722) EST GFR - AA 89 mL/min Normal >60 Comment on above: Result Comment: Afri can [employer] GFR Calc Performed By: #### L 501.30958, L500.4050, L501.9520, L501.9910, L500.4100, L100.0100, L506.0400 #### Laboratory [address] [place], [address] GAP 6 Normal 5-15 Comment on above: Performed By: #### L 501.02127, L500.4050, L501.9520, L501.9910, L500.4100, L100.0100, L506.0400 #### Laboratory [address] [place], [address] GFR/1.73 sq M.predicted among non-blacks MDRD (S/P/Bld) [Vol rate/Area] 73 mL/min/{1.73_m2} Normal >60 Comment on above: Result Comment: Non- GFR Calc Performed By: #### L 501.32138, L500.4050, L501.9520, L501.9910, L500.4100, L100.0100, L506.0400 #### Laboratory [address] [place], [address] Globulin (S) [Mass/Vol] 3.2 g/dL Normal 2.2-4.2 [facility] Comment on above: Performed By: #### L 501.37790, L500.4050, L501.9520, L501.9910, L500.4100, L100.0100, L506.0400 #### Laboratory [address] [place], [address] Glucose [Mass/Vol] 84 mg/dL Normal 74-106 [facility] Comment on above: Performed By: #### L 501.85268, L500.4050, L501.9520, L501.9910, L500.4100, L100.0100, L506.0400 #### Laboratory [address] [place], [address] Potassium [Moles/Vol] 3.9 mmol/L Normal 3.5-5.1 [facility] Comment on above: Performed By: #### L 501.52306, L500.4050, L501.9520, L501.9910, L500.4100, L100.0100, L506.0400 #### Laboratory [address] [place], [address] Sodium [Moles/Vol] 139 mmol/L Normal 136-145 [facility] Comment on above: Performed By: #### L 501.31008, L500.4050, L501.9520, L501.9910, L500.4100, L100.0100, L506.0400 #### Laboratory [address] [place], [address] T PROT 7.5 g/dL Normal 6.4-8.2 Comment on above: Performed By: #### L 501.24472, L500.4050, L501.9520, L501.9910, L500.4100, L100.0100, L506.0400 #### Laboratory [address] [place], [place], [id number] Urea nitrogen [Mass/Vol] 12 mg/dL Normal 7-18 Comment on above: Performed By: #### L 501.80554, L500.4050, L501.9520, L501.9910, L500.4100, L100.0100, L506.0400 #### Laboratory [address] [place], [place], [id number] Determination of erythrocyte mean corpuscular volume (MCV)Ordered By: Lorena Crump on 08-06-2023 MCV (RBC) [Entitic vol] 92.7 fL 80-94 [facility] Free T3on 08-06-2023 Free T3 [Mass/Vol] 2.7 pg/mL Normal 2.18-3.98 [facility] Comment on above: Performed By: #### L 501.41687, L500.4050, L501.9520, L501.9910, L500.4100, L100.0100, L506.0400 #### Laboratory [address] [facility] [place], [place], [id number] Hematocrit Auto (Bld) [Volum e fraction]Ordered By: Lorena Crump on 08-06-2023 Hematocrit (Bld) [Volume fraction] 49.4 % 40-54 Laboratory - Chemistry and C hemistry - challengeOrdered By: Lorena Crump on 08-06-2023 ALP [Catalytic activity/Vol] 62 U/L 45-117 ALT [Catalytic activity/Vol] 36 U/L 16-61 CO2 [Moles/Vol] 28.0 mmol/L 21.0-32.0 Free T4 [Mass/Vol] 0.93 ng/dL 0.76-1.46 [facility] Globulin (S) [Mass/Vol] 3.2 g/dL 2.2-4.2 [facility] Urea nitrogen/Creatinine [Mass ratio] 10.6 mg/mg 10-20 Laboratory - Hematology and Cell countsOrdered By: Lorena Crump on 08-06-2023 Erythrocyte distribution width (RBC) [Entitic vol] 42.5 fL 35.1-43.9 Erythrocyte distribution width (RBC) [Ratio] 12.5 % 11.6-14.6 Immature granulocytes/100 WBC (Bld) 0.200 % 0.0-0.9 Comment on above: IG% - Immature Granu locytes (promyelocytes, myelocytes and metamyelocytes) > 1% indicates that a LEFT SHIFT is Present. MCH (RBC) [Entitic mass] 31.7 pg 27.0-32.0 Nucleated RBC/100 WBC (Bld) [Ratio] 0 % 0-5 MCHC Auto (RBC) [Mass/Vol]Or dered By: Lorena Crump on 08-06-2023 MCHC (RBC) [Mass/Vol] 34.2 g/dL 32-36 [facility] No Panel InformationOrdered By: Lorena Crump on 08-06-2023 Estimated GFR (MDRD) Amer 89 mL/min >60 Comment on above: GFR Calc Estimated GFR (MDRD) Non-Af Amer 73 mL/min >60 Comment on above: Non- GFR Calc Free Triiodothyronine (T3) pg/dL 2.7 pg/mL 2.18-3.98 Prostate Specific Antigen Screen 1.21 ng/mL 0.00-4.00 Comment on above: This test was perfor med using the TPSA assay method for the[facility] chemistry system. Values obtained with differentassay methods cannot be used interchangably.When changing PSA assays in the course of monitoring apatient, additional sequential testing should be carriedout to confirm baseline values. Thyroid Stimulating Hormone (TSH) 4.49 uIU/mL 0.358-3.74 PSA,Total - Annual Screenon 08-06-2023 PSA,TOT SCREEN 1.21 ng/mL Normal 0.00-4.00 Comment on above: Result Comment: This test was performed using the TPSA assay method for the [employer] chemistry system. Values obtained with different assay methods cannot be used interchangably. When changing PSA assays in the course of monitoring a patient, additional sequential testing should be carried out to confirm baseline values. Performed By: #### L 501.00318, L500.4050, L501.9520, L501.9910, L500.4100, L100.0100, L506.0400 #### Laboratory [address] [place], [address] Platelets bldOrdered By: Riddhi Crump on 08-06-2023 Platelets (Bld) [#/Vol] 227 10*3/uL 150-450 Serum or plasma albumin ophelia urement (mass/volume)Ordered By: Lorena Crump on 08-06-2023 Albumin [Mass/Vol] 4.3 g/dL 3.2-5.0 [facility] Serum or plasma albumin/glob ulin mass ratioOrdered By: Lorena Crump on 08-06-2023 Albumin/Globulin [Mass ratio] 1.3 {ratio} 0.9-2.4 Serum or plasma calcium ophelia urement (mass/volume)Ordered By: Lorena Crump on 08-06-2023 Calcium [Mass/Vol] 9.3 mg/dL 8.5-10.1 [facility] Serum or plasma cholesterol in HDL measurement (mass/volume)Ordered By: Lorena Crump on 08-06-2023 Cholesterol in HDL [Mass/Vol] 52 mg/dL >40 Comment on above: The drugs N-Acetylcy steine and Metamizole may falsely depress this assay. Reference Range HDL <40 mg/dL Low HDL Cholesterol HDL >or= 60 mg/dL High HDL Cholesterol Serum or plasma cholesterol in VLDL measurement (mass/volume)Ordered By: Lorena Crump on 01-12-2024 Cholesterol in VLDL [Mass/Vol] 15 mg/dL 5-40 Serum or plasma creatinine m easurement (mass/volume)Ordered By: Lorena Crump on 08-06-2023 Creatinine [Mass/Vol] 1.13 mg/dL 0.70-1.30 [facility] Comment on above: The validity of the calculated GFR & GFRAA in patients over 70 years has not been determined. Clinical correlation is essential. Serum or plasma low density lipoprotein (LDL) cholesterol measurement (mass/volume)Ordered By: Lorena Crump on 08-06-2023 Cholesterol in LDL [Mass/Vol] 112 mg/dL 0-130 Serum or plasma urea nitroge n measurement (mass/volume)Ordered By: Lorena Crump on 08-06-2023 Urea nitrogen [Mass/Vol] 12 mg/dL 7-18 T4 Free Directon 08-06-2023 T4 FREE DIRECT 0.93 ng/dL Normal 0.76-1.46 Comment on above: Performed By: #### L 501.15661, L500.4050, L501.9520, L501.9910, L500.4100, L100.0100, L506.0400 #### Laboratory [address] [place], [place], [id number] Thin prep Papanicolaou smear with manual screeningOrdered By: Lorena Crump on 08-06-2023 Thin prep Papanicolaou smear with manual screening 26 U/L 15-37 Thin prep Papanicolaou smear with manual screening 6 5-15 Thyroid Stim Hormone (TSH)on 08-06-2023 TSH 4.49 uIU/mL High 0.358-3.74 Comment on above: Performed By: #### L [id number], L500.4050, L501.9520, L501.9910, L500.4100, L100.0100, L506.0400 #### Laboratory [address] [place], [place], [id number] Basophil percentageOrdered B y: Dr. Crump on 08-11-2022 Chloride [Moles/Vol] 104 mmol/L 98-107 [facility] Glucose [Mass/Vol] 104 mg/dL 74-106 [facility] Comment on above: Fasting Glucose resu lt from 100 to 125 mg/dL suggests IMPAIRED HOMEOSTASIS per A.D.A. criteria. Potassium [Moles/Vol] 4.3 mmol/L 3.5-5.1 [facility] Sodium [Moles/Vol] 140 mmol/L 136-145 [facility] Testosterone [Mass/Vol] 367.90 ng/dL Comment on above: CENTRAL 90% REFERENC E RANGES MALE AGE <50 197.44 - 669.58 ng/dL MALE AGE > or = 50 187.72 - 684.19 ng/dL FEMALE AGE <50 8.38 - 35.01 ng/dL FEMALE AGE > or = 50 <7.00 - 35.92 ng/dL Effective as of 02/18/21 Laboratory - Chemistry and C hemistry - challengeOrdered By: Dr. Crump on 08-11-2022 CO2 [Moles/Vol] 28.0 mmol/L 21.0-32.0 Cobalamin (Vitamin B12) [Mass/Vol] 338 pg/mL 211-911 Free T4 [Mass/Vol] 1.05 ng/dL 0.76-1.46 [facility] Urea nitrogen/Creatinine [Mass ratio] 10.9 mg/mg 10-20 No Panel InformationOrdered By: Dr. Crump on 08-11-2022 Estimated GFR (MDRD) Amer 84 mL/min >60 Comment on above: GFR Calc Estimated GFR (MDRD) Non-Af Amer 69 mL/min >60 Comment on above: Non- GFR Calc Free Triiodothyronine (T3) pg/dL 3.2 pg/mL 2.18-3.98 Thyroid Stimulating Hormone (TSH) 0.29 uIU/mL 0.358-3.74 Serum or plasma calcium ophelia urement (mass/volume)Ordered By: Dr. Crump on 08-11-2022 Calcium [Mass/Vol] 9.2 mg/dL 8.5-10.1 [facility] Serum or plasma creatinine m easurement (mass/volume)Ordered By: Dr. Crump on 08-11-2022 Creatinine [Mass/Vol] 1.19 mg/dL 0.70-1.30 [facility] Comment on above: The validity of the calculated GFR & GFRAA in patients over 70 years has not been determined. Clinical correlation is essential. Serum or plasma testosterone free measurement (mass/volume)Ordered By: Dr. Crump on 08-11-2022 Testosterone Free [Mass/Vol] 6.7 pg/mL 6.8-21.5 Comment on above: Performed at: [employer] [facility] [employer] [address] [id number] Director: Flory De Jesus MD, Phone: [phone] Serum or plasma urea nitroge n measurement (mass/volume)Ordered By: Dr. Crump on 08-11-2022 Urea nitrogen [Mass/Vol] 13 mg/dL 7-18 Thin prep Papanicolaou smear with manual screeningOrdered By: Dr. Crump on 08-11-2022 Thin prep Papanicolaou smear with manual screening 8 5-15 Absolute lymphocyte counton 02-16-2022 Lymphocytes Auto (Unsp spec) [#/Vol] 1.22 10*3/uL 0.83-4.51 Work Phone: Basophil percentageon 2021 Basophils/100 WBC (Bld) 0.8 % 0-1 [facility] Work Phone: Bilirubin [Mass/Vol] 0.60 mg/dL 0.20-1.00 [facility] Work Phone: Comment on above: For patients on eltr ombopag therapy, use of Dimension Leon TBIL is not recommended. Chloride [Moles/Vol] 108 mmol/L 98-107 [facility] Work Phone: Cholesterol [Mass/Vol] 160 mg/dL <200 [facility] Work Phone: Comment on above: <200 mg/dL Desirable 200-240 mg/dL Borderline >240 mg/dL High Risk Eosinophils/100 WBC (Bld) 1.6 % 0-5 Work Phone: Glucose [Mass/Vol] 104 mg/dL 74-106 [facility] Work Phone: Comment on above: Fasting Glucose resu lt from 100 to 125 mg/dL suggests IMPAIRED HOMEOSTASIS per A.D.A. criteria. Neutrophils (Bld) [#/Vol] 3.1 10*3/uL 2.0-7.7 Work Phone: Neutrophils/100 WBC (Bld) 61.6 % 47-70 Work Phone: Potassium [Moles/Vol] 3.4 mmol/L 3.5-5.1 [facility] Work Phone: Protein [Mass/Vol] 7.2 g/dL 6.4-8.2 [facility] Work Phone: Sodium [Moles/Vol] 141 mmol/L 136-145 [facility] Work Phone: Triglyceride [Mass/Vol] 102 mg/dL <199 [facility] Work Phone: Comment on above: The drugs N-Acetylcy steine and Metamizole may falsely depress this assay.Serum Triglycerides Reference Interval Normal <150 mg/dL Borderline high 150 - 199 mg/dL High 200 - 499 mg/dL Very High > or = 500 mg/dL WBC (Bld) [#/Vol] 5.0 10*3/uL 4.4-11.0 [facility] Work Phone: Blood erythrocytes count (nu mber/volume)on 02-16-2022 RBC (Bld) [#/Vol] 5.00 10*6/uL 4.6-6.2 [facility] Work Phone: Blood hemoglobin measurement (mass/volume)on 02-16-2022 Hemoglobin (Bld) [Mass/Vol] 16.1 g/dL 13.0-16.5 Work Phone: Blood lymphocytes/100 leukoc yteson 02-16-2022 Lymphocytes/100 WBC (Bld) 24.3 % 19-41 Work Phone: Blood monocytes/100 leukocyt eson 02-16-2022 Monocytes/100 WBC (Bld) 11.5 % 0-10 [facility] Work Phone: Blood platelet mean volumeon 02-16-2022 Platelet mean volume (Bld) [Entitic vol] 10.5 fL 6.2-12.0 Work Phone: Determination of erythrocyte mean corpuscular volume (MCV)on 02-16-2022 MCV (RBC) [Entitic vol] 90.8 fL 80-94 [facility] Work Phone: Hematocrit Auto (Bld) [Volum e fraction]on 02-16-2022 Hematocrit (Bld) [Volume fraction] 45.4 % 40-54 Work Phone: Iron measurement (mass/mass) on 02-16-2022 Iron (Unsp spec) [Mass/Mass] 107 ug/dL 65-175 Work Phone: Laboratory - Chemistry and C hemistry - challengeon 02-16-2022 ALP [Catalytic activity/Vol] 72 U/L 45-117 Work Phone: ALT [Catalytic activity/Vol] 31 U/L 16-61 Work Phone: CO2 [Moles/Vol] 26.0 mmol/L 21.0-32.0 Work Phone: Cobalamin (Vitamin B12) [Mass/Vol] 263 pg/mL 211-911 Work Phone: Free T4 [Mass/Vol] 0.98 ng/dL 0.76-1.46 [facility] Work Phone: Globulin (S) [Mass/Vol] 3.0 g/dL 2.2-4.2 [facility] Work Phone: Magnesium [Mass/Vol] 2.2 mg/dL 1.6-2.6 [facility] Work Phone: Urea nitrogen/Creatinine [Mass ratio] 11.1 mg/mg 10-20 Work Phone: Laboratory - Hematology and Cell countson 02-16-2022 Erythrocyte distribution width (RBC) [Entitic vol] 40.1 fL 35.1-43.9 Work Phone: Erythrocyte distribution width (RBC) [Ratio] 12.1 % 11.6-14.6 Work Phone: Immature granulocytes/100 WBC (Bld) 0.200 % 0.0-0.9 Work Phone: Comment on above: IG% - Immature Granu locytes (promyelocytes, myelocytes and metamyelocytes) > 1% indicates that a LEFT SHIFT is Present. MCH (RBC) [Entitic mass] 32.2 pg 27.0-32.0 Work Phone: Nucleated RBC/100 WBC (Bld) [Ratio] 0 % 0-5 Work Phone: MCHC Auto (RBC) [Mass/Vol]on 02-16-2022 MCHC (RBC) [Mass/Vol] 35.5 g/dL 32-36 [facility] Work Phone: No Panel Informationon 02-16 Estimated GFR (MDRD) Amer 86 mL/min >60 Work Phone: Comment on above: GFR Calc Estimated GFR (MDRD) Non-Af Amer 71 mL/min >60 Work Phone: Comment on above: Non- GFR Calc Free Triiodothyronine (T3) pg/dL 3.0 pg/mL 2.18-3.98 Work Phone: Prostate Specific Antigen Screen 1.08 ng/mL 0.00-4.00 Work Phone: Comment on above: This test was perfor med using the TPSA assay method for the[employer] chemistry system. Values obtained with differentassay methods cannot be used interchangably.When changing PSA assays in the course of monitoring apatient, additional sequential testing should be carriedout to confirm baseline values. Thyroid Stimulating Hormone (TSH) 0.38 uIU/mL 0.358-3.74 Work Phone: Platelets bldon 02-16-2022 Platelets (Bld) [#/Vol] 196 10*3/uL 150-450 Work Phone: Serum or plasma albumin ophelia urement (mass/volume)on 02-16-2022 Albumin [Mass/Vol] 4.2 g/dL 3.2-5.0 [facility] Work Phone: Serum or plasma albumin/glob ulin mass ratioon 02-16-2022 Albumin/Globulin [Mass ratio] 1.4 {ratio} 0.9-2.4 Work Phone: Serum or plasma calcium ophelia urement (mass/volume)on 02-16-2022 Calcium [Mass/Vol] 9.1 mg/dL 8.5-10.1 [facility] Work Phone: Serum or plasma cholesterol in HDL measurement (mass/volume)on 02-16-2022 Cholesterol in HDL [Mass/Vol] 51 mg/dL >40 Work Phone: Comment on above: The drugs N-Acetylcy steine and Metamizole may falsely depress this assay. Reference Range HDL <40 mg/dL Low HDL Cholesterol HDL >or= 60 mg/dL High HDL Cholesterol Serum or plasma cholesterol in VLDL measurement (mass/volume)on 02-16-2022 Cholesterol in VLDL [Mass/Vol] 20 mg/dL 5-40 Work Phone: Serum or plasma creatinine m easurement (mass/volume)on 02-16-2022 Creatinine [Mass/Vol] 1.17 mg/dL 0.70-1.30 [facility] Work Phone: Comment on above: The validity of the calculated GFR & GFRAA in patients over 70 years has not been determined. Clinical correlation is essential. Serum or plasma ferritin luis e surement (mass/volume)on 02-16-2022 Ferritin [Mass/Vol] 143 ng/mL 26-388 [facility] Work Phone: Serum or plasma low density lipoprotein (LDL) cholesterol measurement (mass/volume)on 02-16-2022 Cholesterol in LDL [Mass/Vol] 89 mg/dL 0-130 Work Phone: Serum or plasma urea nitroge n measurement (mass/volume)on 02-16-2022 Urea nitrogen [Mass/Vol] 13 mg/dL 7-18 Work Phone: Thin prep Papanicolaou smear with manual screeningon 02-16-2022 Thin prep Papanicolaou smear with manual screening 22 U/L 15-37 Work Phone: Thin prep Papanicolaou smear with manual screening 7 5-15 Work Phone: Thin prep Papanicolaou smear with manual screening 202 U/L 87-241 Work Phone: Absolute lymphocyte counton 11-02-2021 Lymphocytes Auto (Unsp spec) [#/Vol] 1.39 10*3/uL 0.83-4.51 Work Phone: Basophil percentageon 2021 Basophils/100 WBC (Bld) 0.9 % 0-1 [facility] Work Phone: Chloride [Moles/Vol] 109 mmol/L 98-107 [facility] Work Phone: Eosinophils/100 WBC (Bld) 2.2 % 0-5 Work Phone: Glucose [Mass/Vol] 133 mg/dL 74-106 [facility] Work Phone: Comment on above: Fasting Glucose resu lt greater than or equal to 126 mg/dL suggests DIABETES MELLITUS per A.D.A. criteria. Neutrophils (Bld) [#/Vol] 3.4 10*3/uL 2.0-7.7 Work Phone: Neutrophils/100 WBC (Bld) 60.3 % 47-70 Work Phone: Potassium [Moles/Vol] 3.5 mmol/L 3.5-5.1 [facility] Work Phone: Sodium [Moles/Vol] 139 mmol/L 136-145 [facility] Work Phone: WBC (Bld) [#/Vol] 5.6 10*3/uL 4.4-11.0 [facility] Work Phone: Blood erythrocytes count (nu mber/volume)on 11-02-2021 RBC (Bld) [#/Vol] 5.33 10*6/uL 4.6-6.2 [facility] Work Phone: Blood hemoglobin measurement (mass/volume)on 11-02-2021 Hemoglobin (Bld) [Mass/Vol] 17.0 g/dL 13.0-16.5 Work Phone: Blood lymphocytes/100 leukoc yteson 11-02-2021 Lymphocytes/100 WBC (Bld) 24.9 % 19-41 Work Phone: Blood monocytes/100 leukocyt eson 11-02-2021 Monocytes/100 WBC (Bld) 11.5 % 0-10 [facility] Work Phone: Blood platelet mean volumeon 11-02-2021 Platelet mean volume (Bld) [Entitic vol] 10.0 fL 6.2-12.0 Work Phone: Determination of erythrocyte mean corpuscular volume (MCV)on 11-02-2021 MCV (RBC) [Entitic vol] 88.9 fL 80-94 [facility] Work Phone: Hematocrit Auto (Bld) [Volum e fraction]on 11-02-2021 Hematocrit (Bld) [Volume fraction] 47.4 % 40-54 Work Phone: Laboratory - Chemistry and C hemistry - challengeon 11-02-2021 CO2 [Moles/Vol] 26.0 mmol/L 21.0-32.0 Work Phone: Urea nitrogen/Creatinine [Mass ratio] 10.1 mg/mg 10-20 Work Phone: Laboratory - Hematology and Cell countson 11-02-2021 Erythrocyte distribution width (RBC) [Entitic vol] 40.3 fL 35.1-43.9 Work Phone: Erythrocyte distribution width (RBC) [Ratio] 12.4 % 11.6-14.6 Work Phone: Immature granulocytes/100 WBC (Bld) 0.200 % 0.0-0.9 Work Phone: Comment on above: IG% - Immature Granu locytes (promyelocytes, myelocytes and metamyelocytes) > 1% indicates that a LEFT SHIFT is Present. MCH (RBC) [Entitic mass] 31.9 pg 27.0-32.0 Work Phone: Nucleated RBC/100 WBC (Bld) [Ratio] 0 % 0-5 Work Phone: MCHC Auto (RBC) [Mass/Vol]on 11-02-2021 MCHC (RBC) [Mass/Vol] 35.9 g/dL 32-36 [facility] Work Phone: No Panel Informationon 11-02 Troponin I High Sensitivity < 3 pg/mL 3.0-78.0 Work Phone: Comment on above: Please Note: New Juanis t Units and Gender Specific Reference Ranges. For more information see Policy Stat Procedure Leon High Sensitivity Troponin (TNIH) and attachments. Estimated Creatinine Clearance Calc 70.48 ml/min Work Phone: Estimated GFR (MDRD) Amer 71 mL/min >60 Work Phone: Comment on above: GFR Calc Estimated GFR (MDRD) Non-Af Amer 59 mL/min >60 Work Phone: Comment on above: Non- GFR Calc Platelets bldon 11-02-2021 Platelets (Bld) [#/Vol] 214 10*3/uL 150-450 Work Phone: Serum or plasma calcium ophelia urement (mass/volume)on 11-02-2021 Calcium [Mass/Vol] 9.1 mg/dL 8.5-10.1 [facility] Work Phone: Serum or plasma creatinine m easurement (mass/volume)on 11-02-2021 Creatinine [Mass/Vol] 1.38 mg/dL 0.70-1.30 [facility] Work Phone: Comment on above: The validity of the calculated GFR & GFRAA in patients over 70 years has not been determined. Clinical correlation is essential. Serum or plasma urea nitroge n measurement (mass/volume)on 11-02-2021 Urea nitrogen [Mass/Vol] 14 mg/dL 7-18 Work Phone: Thin prep Papanicolaou smear with manual screeningon 11-02-2021 Thin prep Papanicolaou smear with manual screening 4 5-15 Work Phone: Laboratory - Chemistry and C hemistry - challengeon 08-26-2021 Free T4 [Mass/Vol] 1.10 ng/dL 0.76-1.46 [facility] Work Phone: No Panel Informationon 08-26 Free Triiodothyronine (T3) pg/dL 3.5 pg/mL 2.18-3.98 Work Phone: Thyroid Stimulating Hormone (TSH) 0.06 uIU/mL 0.358-3.74 Work Phone: Vital Signs Date Time Vital Sign Value Performing Clinician Faci lity 08-24-2023 09:20-0500 Body temperature 97 [degF] Dr. Lorena Crump Work Phone: 08-24-2023 09:20-0500 Diastolic blood pressure 90 mm[Hg] Dr. Lorena Crump Work Phone: 08-24-2023 09:20-0500 Heart rate 67 /min Dr. Lorena Crump Work Phone: 08-24-2023 09:20-0500 Respiratory rate 18 /min Dr. Lorena Crump Work Phone: 08-24-2023 09:20-0500 SaO2% (BldA) [Mass fraction] 97 % Dr. Lorena Crump Work Phone: 08-24-2023 09:20-0500 Systolic blood pressure 119 mm[Hg] Dr. Lorena Crump Work Phone: 08-24-2023 08:05-0500 Body height 180.[address] Lorena Crump Work Phone: 08-24-2023 08:05-0500 Body mass index (BMI) [Ratio] 27.3 kg/m2 Dr. Lorena Crump Work Phone: 08-24-2023 08:05-0500 Body weight [address] Lorena Crump Work Phone: 08-06-2023 10:49-0500 Body height 180.[address] Lorena Crump Work Phone: 08-06-2023 10:49-0500 Body mass index (BMI) [Ratio] 27.8 kg/m2 Dr. Lorena Crump Work Phone: 08-06-2023 10:49-0500 Body weight 90.[address] Lorena Crump Work Phone: 11-03-2021 00:05-0400 Diastolic blood pressure 74 mm[Hg] Work Phone: 11-03-2021 00:05-0400 Heart rate 84 /min [facility] Work Phone: 11-03-2021 00:05-0400 Respiratory rate 17 /min [facility] Work Phone: 11-03-2021 00:05-0400 SaO2% (BldA) [Mass fraction] 98 % Work Phone: 11-03-2021 00:05-0400 Systolic blood pressure 135 mm[Hg] Work Phone: 11-02-2021 20:46-0400 Body height 180.34 cm [facility] Work Phone: 11-02-2021 20:46-0400 Body mass index (BMI) [Ratio] 26.4 kg/m2 Work Phone: 11-02-2021 20:46-0400 Body temperature 98.1 [degF] [facility] Work Phone: 11-02-2021 20:46-0400 Body weight 86.18 kg [facility] Work Phone: Encounters Encounter Date Encounter Type Care Provider Facility Start: 03-09-2024 End: 03-09-2024 ambulatory Lorena Crump Facility: Start: 08-24-2023 Non-patient / Non-visit Dr. Amy Crump Work Phone: [facility] Start: 08-24-2023 End: 08-24-2023 Admission to same day surgery center Dr. Lorena Crump Work Phone: -Endoscopy Work Phone: Start: 08-24-2023 End: 08-24-[address] Lorena Crump Work Phone: Work Phone: Start: 08-11-2023 Encounter for genera l adult medical examination without abnormal findings Lorena Crump Start: 08-11-2023 [facility] Start: 08-06-2023 End: 08-06-[address] Lorena Crump Work Phone: Work Phone: Start: 08-06-2023 End: 08-06-[address] Lorena Crump Work Phone: [facility] Work Phone: Start: 08-06-2023 Non-patient / Non-visit Dr. Amy Crump Work Phone: [facility] Work Phone: Start: 08-06-2023 ambulatory [facility] Facility:[facility] Start: 08-06-2023 End: 08-06-2023 ambulatory [facility] Facility: Start: 08-11-2022 End: 08-11-2022 ambulatory Work Phone: Start: 08-11-2022 End: 08-11-2022 Patient encounter procedure [facility] Start: 02-16-2022 End: 02-16-2022 [facility] Start: 11-24-2021 End: 11-24-2021 Patient encounter procedure -MRI - [facility] Start: 11-02-2021 End: 11-03-2021 Emergency department patient visit -Emergency Department Start: 08-26-2021 End: 08-26-2021 Patient encounter procedure -Laboratory, Specimen Procedures Date Procedure Procedure Detail Performing Clinician Start: 08-24-[address] Lorena kate Work Phone: Start: 11-24-2021 MRI of brain with contrast Start: 04-10-2022 Plain chest X-ray Plan of Treatment Date Care Activity Detail Author Start: 08-24-2023 Patient discharge [facility] Colonoscopy [facility] Patient Education ED Muscle Spasm Work Phone: Patient referral [facility] Work Phone: Payers Date Payer Category Payer Self-pay [id number] 2023 Unknown [id number] 2014 Unknown [id number] Private Health Insurance [id number] Private Health Insurance [id number] [facility] PACKAGE PLAN [id number] Unknown [id number] Unknown [id number] Unknown [id number] Unknown [id number] Unknown [id number] Unknown [id number] Social History Date Type Detail Facility Start: 11-02-2021 End: 08-24-2023 Tobacco smoking status NHIS Unknown if ever smoked Start: 1975 Sex Assigned At Male [facility] Goals Date Patient Goal Desired Activity /State Mental Status Date Assessment Result Facility 08-24-2023 Cognitive function Voice/Name [facility] Work Phone: 11-02-2021 Cognitive function Level Of Cons ciousness Awake;Alert;Appropriate;Follow s Commands Work Phone: Procedure note 08-24-2023 Note Date & Type Note Facility 08-24-2023 Procedure note [facility] Procedure note 08-24-2023 Note Date & Type Note Facility 08-24-2023 Procedure note [facility] Clinical Note 08-24-2023 Note Date & Type Note Facility 08-24-2023 Note [facility] Medical Records Department [address] [place] [address] History Physical Exam 08/24/23828 MR#: [id number] Acct: [id number] Name: FELIX RICO Rep #: [id number] : 1975 48 From: Jenaro Munoz MD PCP: Dr. Lorena Crump, DO Status:[facility] Location: [place] [address] HPI - General HPI Narrative FELIX RICO, is a 48 M who presents for screening colonoscopy. He has never had a colonoscopy in the past. He denies abdominal pain or blood in the stool. He has no family history of colon cancer. [facility] Medical History (Updated 08/19/23 @ 15:51 by Nikkie Viveros) Anxiety Cancer Depression Family hx colonic polyps Gastric reflux GERD (gastroesophageal reflux disease) Hypothyroidism Testicular cancer Thyroid cancer Home Medications levothyroxine 100 mcg tablet 100 mcg PO MOTUWETHFRSA 04/12/19 [History Last Taken 08/24/23] levothyroxine 25 mcg capsule 50 mcg PO PETERSON 04/12/19 [History Last Taken Unknown] omeprazole 40 mg capsule,delayed release 80 mg PO DAILY 04/12/19 [History Last Taken Unknown] Allergy/AdvReac Type Severity Reaction Status Date / Time No Known Allergies Allergy Verified 08/24/23 08:05 Family History (Updated 08/06/23 @ 10:45 by Raina Medina) Mother Cancer melanoma Hypertension Colon polyps Surgical History History of esophagogastroduodenoscopy (EGD) ( 10/13/17) History of surgical removal of testicle S/P total thyroidectomy Social History (Updated 08/06/23 @ 10:46 by Raina Medina) household members: spouse current occupational status: employed Smoking Status: Never smoker Smokeless tobacco user: chewing tobacco alcohol intake: current substance use type: does not use Past Medical/Surgical History Planned Operation Planned Operative Procedure/s: COLONOSCOPY S.O.S: No Previous Hospitalizations/Surgeries HX Hospitalizations: No HX of Surgeries: RIGHT INGUINAL ORCHECTOMY 2014 TOTAL THYROIDECTOMY 2014 Any Problems With Anesthesia: No You/Your Family Experience Fever (Hyperthermia) With Anes: No Cholinesterase deficiency: No Cardiovascular Hx Chest Pain within Last 2 months: Yes (CHEST PAIN NON CARDIAC) Hx of Irregular Heartbeat and/or Afib: No Hx Heart Attack: No Hx Congestive Heart Failure: No Hx Rheumatic Fever: No Hx Hypertension: No Hx Internal Defibrillator: No Hx Pacemaker: No Hx Cardiac Catheterization: No Hx Cardiac Surgery/Stents/Etc.: No Hx Stress Test: Yes (2-[address] [facility]/ECHO 2010) Hx Pain in Legs when Walking/Leg Cramps: No Respiratory Chronic Cough: No HX of Shortness of Breath: No Hoarseness: No Hx Chronic Obstructive Pulmonary Disease (COPD): No Hx Asthma: No Hx Emphysema: No Hx Sleep Apnea: No CPAP: No BIPAP: No Hx Respiratory Tract Infection/Cold (presently): No Do You Snore Loudly (louder than talking or can be heard): No Do You Often Feel Tired/ Fatigued/ Sleepy Dring Daytime?: No Has Anyone Observed You Stop Breathing During Sleep?: No Result (for STOP score): Negative Hx Smoking: No Smoking Status: Never smoker Gastrointestinal Hx Gastrointestinal Disorders: No Hx Gastrointestinal Bleed: No Hx Ulcer: No Hx Hiatal Hernia: No Difficulty Chewing/Swallowing: No Special diet followed at home: No Hx Unplanned Weight Loss of 20#: No HX Unplanned Weight Gain of 20#: No Neurological Hx Seizures: No HX Syncope/Blackout Spells/Unconsciousness: No Hx Transient Ischemic Attacks (TIA): No Hx Multiple Sclerosis: No Hx Parkinson's Disease: No Hx Head/Neck Injury: No Hx Headaches: No Hx Back Injury/Pain: No Recent Onset of Speech Difficulty: No Restless Legs: No Does patient have nerve stimulator: No Blood Disorder Hx Leukemia: No Bleeding Tendencies: No Hx Deep Vein Thrombosis: No Hx High Cholesterol: No Blood Transmitted Disease: No Hx Hepatitis: No Hx Cirrhosis: No Hx Anemia: No Hx Blood Disorders: No Genitourinary Hx Renal Disease: No Musculoskeletal Hx Arthritis: No Hx Rheumatoid Arthritis: No Hx Gout: No Recent Onset of an Orthopedic Problem: No Endocrine Hx Diabetes: No Thyroid Disease: Yes (THYROID CANCER/TOTAL THYROIDECTOMY/ON MEDS) Hx Steroid Therapy: No Psycho/Social Hx Substance Use: No Hx Alcohol Use: No Hx Anxiety: Yes (ON MED) Hx Depression: Yes (ON MED) Mental Illness: No Hx Dementia: No Miscellaneous Hx Cancer: Yes (RT TESTICULAR, THYROID) Recent Exposure to Contagious Disease: No Hx of C-Diff: No Any Loose Teeth: No Allergies No Known Allergies Allergy (Verified 08/24/23 08:05) Discharge Is Pt Admitted From a Jail, or a Usp: No Who Could Help: After D/C, Where Do you Plan to Go: Return Home Vital Signs Vital Signs Vital Signs: 08/24/23 08:05 08/24/23 08:05 Temperature 97.6 F L (more content not included)... Evaluation note Note Date & Type Note Facility Evaluation note No assessment information availa ble Work Phone: Evaluation note Note Date & Type Note Facility Evaluation note Diagnosis Onset Date Encounter for screening for malignant neoplasm of colon acute Work Phone: History and physical note Note Date & Type Note Facility History and physical note Note Date/Time August 24, 2023 8:30am [facility] Medical Records Department [address] [place] [address] History & Physical Exam 08/24/23828 MR#: [id number] Acct: [id number] Name: FELIX RICO Rep #:[id number] : 1975 48 From: Jenaro okeefe MD PCP: Dr. Lorena Crump, DO Status:[facility] Location: [place] [address] HPI - General HPI Narrative FELIX RICO, is a 48 M who presents for screening colonoscopy. He has never had a colonoscopy in the past. He denies abdominal pain or blood in the stool. He has no family history of colon cancer. [facility] Medical History (Updated 08/19/23 @ 15:51 by Nikkie Viveros) Anxiety Cancer Depression Family hx colonic polyps Gastric reflux GERD (gastroesophageal reflux disease) Hypothyroidism Testicular cancer Thyroid cancer Home Medications levothyroxine 100 mcg tablet 100 mcg PO MOTUWETHFRSA 04/12/19 [History Last Taken 08/24/23] levothyroxine 25 mcg capsule 50 mcg PO PETERSON 04/12/19 [History Last Taken Unknown] omeprazole 40 mg capsule,delayed release 80 mg PO DAILY 04/12/19 [History Last Taken Unknown] Allergy/AdvReac Type Severity Reaction Status Date / Time No Known Allergies Allergy Verified 08/24/23 08:05 Family History (Updated 08/06/23 @ 10:45 by Raina Medina) Mother Cancer melanoma Hypertension Colon polyps Surgical History History of esophagogastroduodenoscopy (EGD) (~10/13/17) History of surgical removal of testicle S/P total thyroidectomy Social History (Updated 08/06/23 @ 10:46 by Raina Medina) household members: spouse current occupational status: employed Smoking Status: Never smoker Smokeless tobacco user: chewing tobacco alcohol intake: current substance use type: does not use Past Medical/Surgical History Planned Operation Planned Operative Procedure/s: COLONOSCOPY S.O.S: No Previous Hospitalizations/Surgeries HX Hospitalizations: No HX of Surgeries: RIGHT INGUINAL ORCHECTOMY 2015 TOTAL THYROIDECTOMY 2014 Any Problems With Anesthesia: No You/Your Family Experience Fever (Hyperthermia) With Anes: No Cholinesterase deficiency: No Cardiovascular Hx Chest Pain within Last 2 months: Yes (CHEST PAIN NON CARDIAC) Hx of Irregular Heartbeat and/or Afib: No Hx Heart Attack: No Hx Congestive Heart Failure: No Hx Rheumatic Fever: No Hx Hypertension: No Hx Internal Defibrillator: No Hx Pacemaker: No Hx Cardiac Catheterization: No Hx Cardiac Surgery/Stents/Etc.: No Hx Stress Test: Yes (2-[address] [facility]/ECHO 2010) Hx Pain in Legs when Walking/Leg Cramps: No Respiratory Chronic Cough: No HX of Shortness of Breath: No Hoarseness: No Hx Chronic Obstructive Pulmonary Disease (COPD): No Hx Asthma: No Hx Emphysema: No Hx Sleep Apnea: No CPAP: No BIPAP: No Hx Respiratory Tract Infection/Cold (presently): No Do You Snore Loudly (louder than talking or can be heard): No Do You Often Feel Tired/ Fatigued/ Sleepy Dring Daytime?: No Has Anyone Observed You Stop Breathing During Sleep?: No Result (for STOP score): Negative Hx Smoking: No Smoking Status: Never smoker Gastrointestinal Hx Gastrointestinal Disorders: No Hx Gastrointestinal Bleed: No Hx Ulcer: No Hx Hiatal Hernia: No Difficulty Chewing/Swallowing: No Special diet followed at home: No Hx Unplanned Weight Loss of 20#: No HX Unplanned Weight Gain of 20#: No Neurological Hx Seizures: No HX Syncope/Blackout Spells/Unconsciousness: No Hx Transient Ischemic Attacks (TIA): No Hx Multiple Sclerosis: No Hx Parkinson's Disease: No Hx Head/Neck Injury: No Hx Headaches: No Hx Back Injury/Pain: No Recent Onset of Speech Difficulty: No Restless Legs: No Does patient have nerve stimulator: No Blood Disorder Hx Leukemia: No Bleeding Tendencies: No Hx Deep Vein Thrombosis: No Hx High Cholesterol: No Blood Transmitted Disease: No Hx Hepatitis: No Hx Cirrhosis: No Hx Anemia: No Hx Blood Disorders: No Genitourinary Hx Renal Disease: No Musculoskeletal Hx Arthritis: No Hx Rheumatoid Arthritis: No Hx Gout: No Recent Onset of an Orthopedic Problem: No Endocrine Hx Diabetes: No Thyroid Disease: Yes (THYROID CANCER/TOTAL THYROIDECTOMY/ON MEDS) Hx Steroid Therapy: No Psycho/Social Hx Substance Use: No Hx Alcohol Use: No Hx Anxiety: Yes (ON MED) Hx Depression: Yes (ON MED) Mental Illness: No Hx Dementia: No Miscellaneous Hx Cancer: Yes (RT TESTICULAR, THYROID) Recent Exposure to Contagious Disease: No Hx of C-Diff: No Any Loose Teeth: No Allergies No Known Allergies Allergy (Verified 08/24/23 08:05) Discharge Is Pt Admitted From a Jail, or a Usp: No Who Could Help: After D/C, Where Do you Plan to Go: Return Home Vital Signs Vital Signs Vital Signs: 08/24/23 08:05 08/24/23 08:05 Temperature 97.6 F L Temperature Source Temporal Pulse Rate 71 Respiratory Rate 16 Respiratory Pattern Normal Blood Pressure 136/90 H Blood Pressure Mean 105 Blood Pressure Source Monitor Blood Pressure Position Semi-Fowlers Blood Pressure Location Right Arm Pulse Ox 98 Oxygen Delivery Method Room Air Weight Weight: 196 lb 3.382 oz Body Mass Index (BMI) 27.3 Physical Exam Const alert and oriented x3 HEENT normocephalic Eyes PERRL Resp normal respiratory effort and normal air movement Cardio regular rate and regular rhythm GI soft to palpation, non-tender and non-distended Extremity normal to inspection Assessment & Plan Assessment/Plan (1) Encounter for screening for malignant neoplasm of colon: PLAN: I explained endoscopy in detail to the patient. I explained the risks including but not limited to stroke or heart attack with anesthesia, perforationof the GI tract, bleeding, infection. I explained that any of these could necessitate further emergency surgery. The patient understands and all questions were answered sufficiently. The patient wishes to proceed with procedure. Jenaro Munoz MD Pager: [facility] [address] [place] [address], [address] [place] [id number] Office: Surgery Risks - Colonoscopy Risks Include but are not Limited To: Risks include but are not limited to: Bleeding, perforation requiring further surgery, inability to complete colonoscopy requiring barium enema. 08/24/23 0830 <Electronically signed by Jenaro Munoz MD> Cosigner Signature (if applicable): CC: Dr. Jenaro Munoz MD; Dr. Lorena Crump DO~ Signed Work Phone: Chief Complaint and Reason for Visit Chief Complaint GEOVANI ARM PAIN Chief Complaint GEOVANI ARM PAIN DIPLOPIA, DIZZINESS, PARESTHESIAS OF FACE/ARM/LEGS Chief Complaint LR GINGIVAL CHANGES/ PAIN/ULCERATION Chief Complaint Amb Documentation Chief Complaint Amb Documentation Reason for Visit Encounter for screen ing for malignant neoplasm of colon Advance Directives No Advanced Directives Records Found Advance Directive Response Recorded Date/ Time Advance Directives No March 10:40am Living Will No November 02, 2021 8:54pm Power of School Cleaner No November 02 8:54pm Advance Directive Response Recorded Date/ Time Advance Directives No March 9:40am Living Will No November 02, 2021 7:54pm Power of School Cleaner No November 02 7:54pm Advance Directive Response Recorded Date/ Time Advance Directives No March 9:40am Living Will No August 19 3:47pm Power of School Cleaner No August 19, 2023 3:47pm Family History No Family History Records Found Relationship Condition Age at Onset Recorded Date/T sven mother Malignant neoplasm Unknown Hypertension Unknown Polyp of colon Unknown Summary Purpose Additional Source Comments Goals (unrecognized section and content) Goals may be documented in a n alternate sectionGoals may be documented in an alternate sectionGoals may be documented in an alternate sectionGoals may be documented in an alternate sectionGoals may be documented in an alternate section Care Teams (unrecognized sec tion and content) Team Status: Active Member Role Status Dates Dr. Lorena Crump DO Family Provider Active Dr. Lorena Crump , DO Primary Care Provider Active Team Status: Inactive Member Role Status Dates Dr. Lorena Crump DO Primary Care Provide r, Attending Provider, Referring Provider Active Team Status: Active Member Role Status Dates Dr. oLrena Crump DO Primary Care Provider Active [facility] Attending Provider Active Team Status: Active Member Role Status Dates Dr. Lorena Crump DO Primary Care Provider, Referring P rovider Active Dr. Jenaro Munoz MD Attending Provider, Other Provider Active Team Status: Inactive Member Role Status Dates Dr. Lorena Crump DO Primary Care Provider, Referring P rovider Active Dr. Jenaro Munoz MD Attending Provider Active (unrecognized sect ion and content) No Status Records Found INFORMATION SOURCE (unrecogn ized section and content) DATE CREATED AUTHOR 04/02/2024 [facility] FOR RECORDS PERTAINING TO PATIENTS WHO ARE OR HAVE BEEN ENROLLED IN A CHEMICAL DEPENDENCY/SUBSTANCEABUSE PROGRAM, SOME INFORMATION MAY BE OMITTED. This clinical summary was aggregated from multiple sources. Caution should be exercised in using it in the provision of clinical care. This summary normalizes information from multiple sources, and as a consequence, information in this document may materially change the coding, format and clinical context of patient data. In addition, data may be omitted in some cases. CLINICAL DECISIONS SHOULD BE BASED ON THE PRIMARY CLINICAL RECORDS. [employer] provides no warranty or guarantee of the accuracy or completeness of information in this document.
[2025-06-16 17:41] LABS: Prothrombin Time (Protime)PT. 13.5 SECONDS (11.7-14.9)
[2025-06-16 17:42] LABS: Partial Thromboplast Time 27.2 Seconds (24.1-36.2)
--- NOTE | 2025-06-16 17:45 | CT_ITS ---
PROCEDURE: CTA NECK W/WO CONTRAST 06/16/2025 REASON FOR EXAM: DISSECTION TECHNIQUE: Procedure Code: CTCTANEWW Modality: CT Procedure: CTA NECK W/WO CONTRAST Multiplanar Sagittal and Coronal images were obtained. CONTRAST: 100 cc of Isovue 370 One or more dose reduction techniques were used (e.g., Automated exposure control, adjustment of the mA and/or kV according to patient size, use of iterative reconstruction technique). COMPARISON: Same-day CT angio chest FINDINGS: AORTIC ARCH: Unremarkable. EXTRACRANIAL CAROTIDS: No dissection, occlusion, or stenosis. No contrast extravasation. SKULL BASE: Unremarkable. INTRACRANIAL VASCULATURE Cerebral Arteries: Visualized vasculature unremarkable. [place] of [place]: Unremarkable Venous Drainage: Unremarkable. VERTEBROBASILAR SYSTEM: Unremarkable. NONVASCULAR: Soft tissues of the head and neck unremarkable. Lung ozuna are clear. CT/CTA Neck W/WO Contrast IMPRESSION: Unremarkable CT angiogram of the neck with no evidence of dissection, occlusion , or stenosis. Reading Location: [facility]
[2025-06-16 17:53] LABS: Anion Gap 12 (5-15); BUN 16 mg/dL (4-19); BUN/Creat Ratio 13.3 RATIO (10-20); Calcium,Total 9.5 mg/dL (7.6-11.0); Carbon Dioxide 22.0 mmol/L (21.0-32.0); Chloride 106 mmol/L (98-108); Estimated Creatinine Clearance 86.65 ml/min (50-250); Glucose 101 mg/dL (70-99); Potassium 4.2 mmol/L (3.3-5.1); Troponin T High Sensitivity < 6 ng/L (<=22)
[2025-06-16 18:26] VITALS: BP 151/97; PULSE 75; RESP 22; O2SAT 96
[2025-06-16] MEDS: Ketorolac 30 MG/ML Syringe IV (18:35)
[2025-06-16 20:19] LABS: Troponin T High Sens 2 HR 10 ng/L (<=22)
[2025-06-16 21:29] VITALS: BP 146/94; PULSE 66; RESP 17; TEMP 36.6; O2SAT 96
== END 2025-06-16 22:04 | disposition home or self-care (01) ==
PROVIDERS: Emergency Provider Emergency Medicine; PCP Family Medicine; Visit Provider Emergency Medicine
DX: K08.89 Other specified disorders of teeth and supporting structures (principal); I10 Essential (primary) hypertension; K21.9 Gastro-esophageal reflux disease without esophagitis; E89.0 Postprocedural hypothyroidism
CPT/HCPCS: 70498; 71275; 80048; 84484; 85025; 85610; 85730; 93005; 96374; 96375; 99285; Q9967; A4216; J2405